=== PATIENT | male | born 1945 | race Caucasian/White ===

== ENCOUNTER 2019-10-13 10:49 | Outpatient (CLI) | payer OTHER, SELFPAY ==
--- NOTE | 2019-10-13 11:13 | XR_ITS ---
WS: [id number] SHOULDER RIGHT TECHNIQUE: 3 views of the right shoulder CLINICAL INFORMATION: RT REVERSE TOTAL SHOULDER ARTHROPLASTY COMPARISON: None. FINDINGS: Normal acromioclavicular joint. Reversed right TSA. No evidence of hardware loosening. XR/XR shoulder RT min 2V* 60280 IMPRESSION: Reversed right TSA in good position
== END 2019-10-13 10:50 | disposition home or self-care (01) ==
LOC: RAD 11:06
PROVIDERS: Visit Provider Orthopaedic Surgery
DX: Z96.611 Presence of right artificial shoulder joint (principal)
CPT/HCPCS: 73030

== ENCOUNTER 2020-05-16 11:43 | Emergency (ER) | payer OTHER, MEDICARE, SELFPAY ==
[2020-05-16 11:53] VITALS: BP 142/89; PULSE 66; RESP 18; TEMP 36.4; O2SAT 97; BMI 30.2
--- NOTE | 2020-05-16 12:18 | CT_ITS ---
WS: [id number] CT HEAD NONCONTRAST HISTORY: Symptoms of Acute Stroke TECHNIQUE: Contiguous axial imaging performed through the brain in 2.5 mm imaging. Bone and soft tiss ue windows. Sagittal and coronal reformats reviewed. All CT scans at [facility] use at ast one of these dose optimization techniques: automated exposure control; mA and/or kV adjustment pe r patient size (includes targeted exams where dose is matched to clinical indication); or iterative r econstruction. DLP: 764.41 mGy.cm COMPARISON: None available. No acute intracranial hemorrhage, midline shift or mass effect. Mild atrophy and mild chronic microvascular ischemic disease. No prior large territory infarct. No duque lcal effacement. Mild cerebellar atrophy. Ventricles: Normal size with no hydrocephalus. Paranasal sinuses: As visualized are clear. Mastoid air cells: Well pneumatized. Calvarium and scalp: Skull is intact with no soft tissue edema or swelling. Mild atherosclerotic plaque in the intracranial carotid arteries. CT/CT head wo con* [id number] IMPRESSION: 1. No evidence for an acute intracranial hemorrhage or edema. 2. Mild atrophy and chronic ischemic disease.
--- NOTE | 2020-05-16 12:18 | ECG_ITS ---
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
[2020-05-16 12:29] LABS: Glucose Point of Care 176 mg/dL (70-110)
--- NOTE | 2020-05-16 12:30 | ED_ITS ---
HPI - Neuro Symptoms/Deficit General: Chief Complaint: Neuro Symptoms/Deficit Stated Complaint: PHY REF/POSS STROKE Time Seen by Provider: 05/16/20 12:06 Source: patient and family () Mode of arrival: ambulatory Limitations: no limitations History of Present Illness: HPI Narrative: Patient is a 74-year-old gentleman with a history of hypertension, diabetes, aortic aneurysm, who presents to the emergency department with left-sided hemiparesis that is intermittent. He has been having the symptoms for about 3 to 4 days with left-sided weakness. He states his only last for a short time and the last time it happened was this morning, lasted about 30 seconds, about 1 hour ago.. No slurred speech, no facial drooping, no headache. He has a longstanding history of dizziness. Location: left arm and left leg History of same: Yes Severity: mild Quality: weak Relieving factors: time Exacerbating factors: none Context: sudden onset On Anticoagulants: No Associated symptoms: Deny chest pain, cough, diaphoresis, fevers/chills, headache(s), anorexia, malaise, nausea, seizures, short of breath, syncope, tingling, vertigo, vomiting or weakness Review of Systems General: Reports: 10 or more systems reviewed and unremarkable except in HPI and below Const: Denies: malaise or diaphoresis Eyes: Denies: change in vision or blurry vision ENMT: Denies: throat pain, enlarged tonsils, odynophagia, hoarseness, mouth pain or swelling of lips/tongue Card: Denies: chest pain or syncope Resp: Denies: dyspnea, productive cough or non-productive cough GI: Denies: nausea or vomiting : Denies: flank pain, dysuria, urinary frequency, urinary urgency or urinary hesitancy Musc: Denies: neck pain, back pain or extremity swelling Skin/Breast: Denies: rash, pruritus or erythema Neuro: Denies: headache(s) or vertigo Endo: Denies: polyuria, polydipsia or tired all the time NIH stroke score NIHSS: Level Of Consciousness - 1a: 0 Level Of Consciousness Questions - 1b: Both Correct Level Of Consciousness Commands - 1c: Both Correct Best G aze - 2: Normal Visual Lopes - 3: No Visual Loss Facial Palsy - 4: Normal Motor Arm Right - 5: No Drift Motor Arm Left - 5: No Drift Motor Leg Right - 6: No Drift Motor Leg Left - 6: No Drift Limb Ataxia - 7: Absent Sensory - 8: Normal Best Language - 9: No Aphasia Dysarthia - 10: Normal Extinction And Inattention - 11: 0 Score: Total Score: 0 Physical Exam Const: COMMON NORMALS: no acute distress, average body habitus, patient oriented x3, no limitations, healthy appearing, alert and well nourished HENMT: COMMON NORMALS: normocephalic, atraumatic and moist oral mucous membranes HEAD & SCALP: normocephalic and atraumatic Eye: COMMON NORMALS: Equal, round and reactive pupils present, EOMs intact bilaterally, conjunctivae normal and no scleral icterus CONJUNCTIVA: Yes conjunctivae normal PUPIL: Yes Equal, round and reactive pupils present Neck/C-Spine: COMMON NORMALS: full ROM, supple, no meningeal signs, no JVD and No carotid bruits Chest: COMMONS NORMALS: normal inspection of the chest and normal palpation of entire chest wall Resp: COMMON NORMALS: normal respiratory effort, No retractions, No use of accessory muscles, clear to auscultation bilaterally and percussion normal AUSCULTATION: clear to auscultation bilaterally PERCUSSION: percussion normal Cardio: COMMON NORMALS: no JVD, regular rate, regular rhythm, S1 normal heart sound present, S2 normal heart sound present, No gallops present (Cardio), No clicks present (Cardio), No murmurs present (Cardio), No rub (Cardio) and Peripheral pulses 2+ throughout RATE: regular rate RHYTHM: regular rhythm HEART SOUNDS: S1 normal heart sound present and S2 normal heart sound present PERIPHERAL PULSES: Peripheral pulses 2+ throughout GI: COMMON NORMALS: Normal to inspection, nondistended, normoactive bowel sounds present, Soft to palpation, non-tender, No hepatosplenomegaly present, no masses and no bruits PALPATION: Yes Soft to palpation and Yes No hepatosplenomegaly present Extremity: COMMON NORMALS: normal to inspection, full ROM, capillary refill normal, no calf tenderness and no pedal edema Neuro: COMMON NORMALS: patient oriented x3 SENSORIUM/ORIENTATION: Yes alert MENINGEAL SIGNS: Yes no meningeal signs Skin: COMMON NORMALS: no rashes or lesions noted, no wounds, turgor normal, no jaundice, no petechiae and no mottling GENERAL SKIN EXAM: no rashes or lesions noted and turgor normal Course Reevaluation(s): Reevaluation #1: Discussed his lab and imaging findings with him, also discussed my conversation with the neurologist. Explained that would love for him to get carotid Dopplers and echo either here or outpatient. Also would like to order an outpatient MRI. The patient states he cannot wait any longer in the emergency department and wants to leave. He refused a Doppler to be done here, says he would like it done outpatient. He said his primary care provider sent him here for a CT scan only and that all he wants done. He therefore said he is not going to agree to any more tests to be done in the emergency room. He agreed to starting Plavix and to change his statin from pravastatin to atorvastatin. Time: 14:39 Consultations: Consultation #1: Discussed this patient with Dr. Arana, neurologist. She agrees that this patient is likely having TIAs. She agrees with changing pravastatin to atorvastatin. She would like the patient to get a CTA of his head and neck, however I explained to her that the patient is quite resistant to getting intravenous contrast because of declining renal function and has stopped getting CTAs looking at his aortic aneurysm repair because of this. She then said we can get a carotid Doppler in the emergency department and if possible on echocardiogram. The other medication that he probably should start his Plavix. The patient should get an MRI plus intracranial MRA which is without contrast. And she would like to see me in the clinic and he should be put on the TIA schedule. Time: 14:24 Vital Signs: Vital signs: Vital Signs Temperature 97.9 F 05/16/20 14:59 Pulse Rate 65 05/16/20 14:59 Respiratory Rate 18 05/16/20 14:59 Blood Pressure 149/89 05/16/20 14:59 Pulse Oximetry 99 05/16/20 14:59 MDM - Neuro Symptoms/Deficit MDM Narrative: Medical decision making narrative: 74-year-old gentleman who was sent to the emergency department by his primary care provider with concerns for TIAs. History and examination and evaluation in the emergency department is suggestive of TIA. The patient however was unwilling to wait for all his tests, the only thing he wanted done was a CT of his head. He declined a carotid Doppler and echocardiogram in the emergency department. He however wants them to be done outpatient. He agreed to medication changes and he will stop pravastatin and start atorvastatin. He will also start Plavix. He was therefore discharged home with this medication and he will follow-up with his primary care provider and neurology. Medical Records: Attestation: I reviewed the patient's medical records. Lab Data: Attestation: I reviewed the patient's lab results. Labs: Lab Results 05/16/20 05/16/20 05/16/20 Range/Units 12:26 12:27 12:27 WBC 7.7 (4.0-10.0) 10^3/ uL RBC 4.65 (4.1-5.3) 10^6/u L Hgb 13.6 (11.7-16.6) g/dL Hct 41.5 L (42.0-52.0) % MCV 89.2 (80-94) fL MCH 29.2 (28.0-34.0) pg MCHC 32.8 (30.0-36.0) g/dL RDW 13.0 (12.1-15.1) % Plt Count 232 (130-400) 10^3/c mm MPV 11.9 H (7.4-10.4) fL Neut % (Auto) 50.0 % Lymph % (Auto) 32.2 % Mcpherson % (Auto) 9.1 % Eos % (Auto) 5.8 % Baso % (Auto) 2.1 % Neut # (Auto) 3.85 (1.8-7.7) 10^3/u L Lymph # (Auto) 2.5 (0.8-4.8) 10^3/u L Mcpherson # (Auto) 0.7 (0.2-0.9) 10^3/u L Eos # (Auto) 0.5 (0.0-0.8) 10^3/u L Baso # (Auto) 0.2 H (0.0-0.1) 10^3/u L Nucleated RBC % (a uto) 0 % Nucleated RBCs # 0.0 /100WBC PT 12.70 (12.1-14.9) SECO NDS INR 0.93 (0.8-1.2) APTT 26.8 (23.9-36.7) SECO NDS Sodium (136-145) mmol/L Potassium (3.5-5.1) mmol/L Chloride (98-107) mmol/L Carbon Dioxide (22-29) mmol/L Anion Gap (5-19) BUN (8-23) mg/dL Creatinine (0.7-1.2) mg/dL GFR Calculation Glucose (65-115) mg/dL POC Glucose 176 (70-110) mg/dL Calculated Osmolal ity (285-295) mOsm/k g Calcium (8.5-10.5) mg/dL Total Bilirubin (0.15-1.2) mg/dL AST (0-40) U/L ALT (0-41) U/L Alkaline Phosphata se (40-130) IU/L Troponin T Gen 5 n g/L (0-15) ng/L Total Protein (6.6-8.7) g/dL Albumin (3.5-5.2) g/dL Globulin (1.3-4.6) g/dL Urine Color (Yellow) Urine Appearance (CLEAR) Urine pH (5-7) Ur Specific Gravit y (1.005-1.030) Urine Protein (Negative) Urine Glucose (UA) (Normal) Urine Ketones (Negative) Urine Blood (Negative) Urine Nitrate (Negative) Urine Bilirubin (Negative) Urine Urobilinogen (Negative) mg/dL Ur Leukocyte Kaylan ase (Negative) Urine Opiates Scre en (Negative) ng/mL Ur Barbiturates Sc reen (Negative) ng/mL Ur Phencyclidine S crn (Negative) ng/mL Ur Amphetamines Sc reen (Negative) ng/mL U Benzodiazepines Scrn (Negative) ng/mL Urine Cocaine Scre en (Negative) ng/mL U Marijuana (THC) Screen (Negative) ng/mL 05/16/20 05/16/20 05/16/20 Range/Units 12:27 12:27 13:10 WBC (4.0-10.0) 10^3/ uL RBC (4.1-5.3) 10^6/u L Hgb (11.7-16.6) g/dL Hct (42.0-52.0) % MCV (80-94) fL MCH (28.0-34.0) pg MCHC (30.0-36.0) g/dL RDW (12.1-15.1) % Plt Count (130-400) 10^3/c mm MPV (7.4-10.4) fL Neut % (Auto) % Lymph % (Auto) % Mcpherson % (Auto) % Eos % (Auto) % Baso % (Auto) % Neut # (Auto) (1.8-7.7) 10^3/u L Lymph # (Auto) (0.8-4.8) 10^3/u L Mcpherson # (Auto) (0.2-0.9) 10^3/u L Eos # (Auto) (0.0-0.8) 10^3/u L Baso # (Auto) (0.0-0.1) 10^3/u L Nucleated RBC % (a uto) % Nucleated RBCs # /100WBC PT (12.1-14.9) SECO NDS INR (0.8-1.2) APTT (23.9-36.7) SECO NDS Sodium 135 L (136-145) mmol/L Potassium 4.9 (3.5-5.1) mmol/L Chloride 101 (98-107) mmol/L Carbon Dioxide 24 (22-29) mmol/L Anion Gap 14.9 (5-19) BUN 18 (8-23) mg/dL Creatinine 1.6 H (0.7-1.2) mg/dL GFR Calculation Not Reportable Glucose 195 H (65-115) mg/dL POC Glucose (70-110) mg/dL Calculated Osmolal ity 287 (285-295) mOsm/k g Calcium 9.5 (8.5-10.5) mg/dL Total Bilirubin 0.3 (0.15-1.2) mg/dL AST 19 (0-40) U/L ALT 23 (0-41) U/L Alkaline Phosphata se 79 (40-130) IU/L Troponin T Gen 5 n g/L 10 (0-15) ng/L Total Protein 6.8 (6.6-8.7) g/dL Albumin 4.3 (3.5-5.2) g/dL Globulin 2.5 (1.3-4.6) g/dL Urine Color Yellow (Yellow) Urine Appearance Clear (CLEAR) Urine pH 6 (5-7) Ur Specific Gravit y 1.015 (1.005-1.030) Urine Protein Neg (Negative) Urine Glucose (UA) 1+ (Normal) Urine Ketones Negative (Negative) Urine Blood Neg (Negative) Urine Nitrate Negative (Negative) Urine Bilirubin Neg (Negative) Urine Urobilinogen Norm (Negative) mg/dL Ur Leukocyte Kaylan ase Negative (Negative) Urine Opiates Scre en (Negative) ng/mL Ur Barbiturates Sc reen (Negative) ng/mL Ur Phencyclidine S crn (Negative) ng/mL Ur Amphetamines Sc reen (Negative) ng/mL U Benzodiazepines Scrn (Negative) ng/mL Urine Cocaine Scre en (Negative) ng/mL U Marijuana (THC) Screen (Negative) ng/mL 05/16/20 05/16/20 Range/Units 13:10 13:49 WBC (4.0-10.0) 10^3/ uL RBC (4.1-5.3) 10^6/u L Hgb (11.7-16.6) g/dL Hct (42.0-52.0) % MCV (80-94) fL MCH (28.0-34.0) pg MCHC (30.0-36.0) g/dL RDW (12.1-15.1) % Plt Count (130-400) 10^3/c mm MPV (7.4-10.4) fL Neut % (Auto) % Lymph % (Auto) % Mcpherson % (Auto) % Eos % (Auto) % Baso % (Auto) % Neut # (Auto) (1.8-7.7) 10^3/u L Lymph # (Auto) (0.8-4.8) 10^3/u L Mcpherson # (Auto) (0.2-0.9) 10^3/u L Eos # (Auto) (0.0-0.8) 10^3/u L Baso # (Auto) (0.0-0.1) 10^3/u L Nucleated RBC % (a uto) % Nucleated RBCs # /100WBC PT (12.1-14.9) SECO NDS INR (0.8-1.2) APTT (23.9-36.7) SECO NDS Sodium (136-145) mmol/L Potassium (3.5-5.1) mmol/L Chloride (98-107) mmol/L Carbon Dioxide (22-29) mmol/L Anion Gap (5-19) BUN (8-23) mg/dL Creatinine (0.7-1.2) mg/dL GFR Calculation Glucose (65-115) mg/dL POC Glucose 154 (70-110) mg/dL Calculated Osmolal ity (285-295) mOsm/k g Calcium (8.5-10.5) mg/dL Total Bilirubin (0.15-1.2) mg/dL AST (0-40) U/L ALT (0-41) U/L Alkaline Phosphata se (40-130) IU/L Troponin T Gen 5 n g/L (0-15) ng/L Total Protein (6.6-8.7) g/dL Albumin (3.5-5.2) g/dL Globulin (1.3-4.6) g/dL Urine Color (Yellow) Urine Appearance (CLEAR) Urine pH (5-7) Ur Specific Gravit y (1.005-1.030) Urine Protein (Negative) Urine Glucose (UA) (Normal) Urine Ketones (Negative) Urine Blood (Negative) Urine Nitrate (Negative) Urine Bilirubin (Negative) Urine Urobilinogen (Negative) mg/dL Ur Leukocyte Kaylan ase (Negative) Urine Opiates Scre en Negative (Negative) ng/mL Ur Barbiturates Sc reen Negative (Negative) ng/mL Ur Phencyclidine S crn Negative (Negative) ng/mL Ur Amphetamines Sc reen Negative (Negative) ng/mL U Benzodiazepines Scrn Negative (Negative) ng/mL Urine Cocaine Scre en Negative (Negative) ng/mL U Marijuana (THC) Screen Negative (Negative) ng/mL Imaging Data^: CT Head: Attestation: I personally reviewed and interpreted this imaging study as follows: Radiologist's impression: [address] [place] [address] CT Scan Report Signed Patient: Howard Williamson #: [id number] : 7Acct#:[id number] Age/Sex: 74 / MADM Date: 05/16/20 Loc: ERRoom/Bed: Attending Dr: Ordering Provider/Ordering MD: Zaheer Grove [place], [facility] [place] of Service: 05/16/20 Procedure(s): CT head wo con* [id number] Accession Number(s): [id number] Report Number: [id number] WS: [id number] CT HEAD NONCONTRAST HISTORY: Symptoms of Acute Stroke TECHNIQUE: Contiguous axial imaging performed through the brain in 2.5 mm imaging. Bone and soft tissue windows. Sagittal and coronal reformats reviewed. All CT scans at [facility] use at least one of these dose optimization techniques: automated exposure control; mA and/or kV adjustment per patient size (includes targeted exams where dose is matched to clinical indication); or iterative reconstruction. DLP: 764.41 mGy.cm COMPARISON: None available. No acute intracranial hemorrhage, midline shift or mass effect. Mild atrophy and mild chronic microvascular ischemic disease. No prior large territory infarct. No sulcal effacement. Mild cerebellar atrophy. Ventricles: Normal size with no hydrocephalus. Paranasal sinuses: As visualized are clear. Mastoid air cells: Well pneumatized. Calvarium and scalp: Skull is intact with no soft tissue edema or swelling. Mild atherosclerotic plaque in the intracranial carotid arteries. CT/CT head wo con* [id number] IMPRESSION: 1. No evidence for an acute intracranial hemorrhage or edema. 2. Mild atrophy and chronic ischemic disease. Dictated By:Amy Brewster DO Signed By:Amy Brewster DOSigned Date/Time:05/16/20 1235 DD/ 1233 EKG Data^: EKG 1: Attestation: I personally reviewed and interpreted this EKG as follows: EKG interpretation date: 05/16/20 EKG interpretation time: 12:40 Prior EKG tracings: not available for review Interpretation: Sinus bradycardia with first-degree AV block. Heart rate [address] changes. Normal axis. Discharge Plan Discharge Patient Disposition: Home Clinical Impression: TIA (transient ischemic attack) Condition: Stable Prescriptions: New Plavix 75 mg tablet 75 mg PO DAILY Qty: 30 RF: 0 atorvastatin 40 mg tablet 40 mg PO DAILY Qty: 30 RF: 0 Continued aspirin 325 mg Tablet 325 mg PO DAILY RF: 0 metoprolol tartrate 100 mg Tablet 100 mg PO BID RF: 0 allopurinol 100 mg Tablet 100 mg PO DAILY RF: 0 levothyroxine 88 mcg Tablet 88 mcg PO DAILY RF: 0 tamsulosin 0.4 mg Capsule 0.4 mg PO QPM RF: 0 metformin 1,000 mg Tablet 1,000 mg PO BID RF: 0 lisinopril 10 mg Tablet 10 mg PO BID RF: 0 omeprazole 20 mg Capsule,Delayed Release(Dr/Ec) 20 mg PO DAILY RF: 0 hydrochlorothiazide 25 mg Tablet 25 mg PO DAILY RF: 0 Vitamin D3 25 mcg (1,000 unit) Capsule 1,000 unit PO BID RF: 0 Vitamin B-12 1 tab PO BID RF: 0 Discontinued pravastatin 80 mg Tablet 80 mg PO QPM RF: 0 Discharge Orders: Discharge Order (Routine); Ordered 05/16/20 Ordered By: Zaheer Grove Referrals: Mini Vasquez FNP [Primary Care Provider] - 1-3 days Discharge Diet: Usual diet Discharge Activity: Increase activity as tolerated Patient Instructions: Transient Ischemic Attack (ED) Activity Restrictions/Additional Instructions: Return for any new or worsening symptoms. Follow-up with your primary care provider within 3 days. You require a few more test for full evaluation of your TIA. You need the following tests-carotid Doppler, echocardiogram, brain MRI with intracranial MRA. I have put in the referral and our binder caser will discuss with the [facility] binder [facility] so that you can have these tests done. Stop pravastatin and start atorvastatin as prescribed, also start the Plavix that I have prescribed. Coding Level of Care Code ED Campaign Worker for Devante Mcclelland Exam Comprehensive
[2020-05-16 12:40] VITALS: BP 140/82; PULSE 61; RESP 18; O2SAT 98
[2020-05-16 12:40] LABS: Basophils # 0.2 10^3/uL (0.0-0.1); Basophils % 2.1 %; Eosinophils # 0.5 10^3/uL (0.0-0.8); Eosinophils % 5.8 %; Hematocrit 41.5 % (42.0-52.0); Hemoglobin 13.6 g/dL (11.7-16.6); Lymphocytes # 2.5 10^3/uL (0.8-4.8); Lymphocytes % 32.2 %; Mean Corpuscular HGB Conc 32.8 g/dL (30.0-36.0); Mean Corpuscular Hemoglobin 29.2 pg (28.0-34.0); Mean Corpuscular Volume 89.2 fL (80-94); Mean Platelet Volume 11.9 fL (7.4-10.4); Monocytes # 0.7 10^3/uL (0.2-0.9); Monocytes % 9.1 %; Neutrophils # 3.85 10^3/uL (1.8-7.7); Nucleated Red Blood Cells % 0 %; Platelet Count 232 10^3/cmm (130-400); Red Blood Count 4.65 10^6/uL (4.1-5.3); White Blood Count 7.7 10^3/uL (4.0-10.0)
[2020-05-16 12:49] LABS: INR 0.93 (0.8-1.2)
[2020-05-16 12:50] LABS: Partial Thromboplastin Time 26.8 SECONDS (23.9-36.7)
[2020-05-16 12:56] LABS: Alanine Aminotransferase 23 U/L (0-41); Albumin Level 4.3 g/dL (3.5-5.2); Alkaline Phosphatase 79 IU/L (40-130); Anion Gap 14.9 (5-19); Aspartate Amino Transferase 19 U/L (0-40); Blood Urea Nitrogen 18 mg/dL (8-23); Calcium 9.5 mg/dL (8.5-10.5); Carbon Dioxide 24 mmol/L (22-29); Chloride 101 mmol/L (98-107); Globulin 2.5 g/dL (1.3-4.6); Glucose 195 mg/dL (65-115); Osmolality Calculated 287 mOsm/kg (285-295); Potassium 4.9 mmol/L (3.5-5.1); Sodium 135 mmol/L (136-145); Total Bilirubin 0.3 mg/dL (0.15-1.2); Total Protein 6.8 g/dL (6.6-8.7)
[2020-05-16 12:58] LABS: Troponin T (5th) Once 10 ng/L (0-15)
[2020-05-16 13:09] VITALS: BP 151/88; PULSE 65; RESP 18; O2SAT 95
[2020-05-16 13:20] LABS: Add Urine Microscopic? NO
[2020-05-16 13:32] LABS: Amphetamines Screen Urine Negative (Negative); Barbiturates Screen Urine Negative (Negative); Benzodiazepines Screen Urine Negative (Negative); Cocaine Screen Urine Negative (Negative); Opiate Screen Urine Negative (Negative); PCP Screen Urine Negative (Negative); THC Screen Urine Negative (Negative)
[2020-05-16 13:52] LABS: Bilirubin Urine Neg (Negative); Blood Urine Neg (Negative); Glucose Urine UA 1+ (Normal); Ketones Urine Negative (Negative); Leukocyte Esterase Urine Negative (Negative); Nitrate Urine Negative (Negative); Protein Urine Neg (Negative); Specific Gravity, Urine 1.015 (1.005-1.030); Urine Appearance Clear (CLEAR); Urine Color Yellow (Yellow); Urobilinogen Urine Norm (Negative); pH Urine 6 (5-7)
[2020-05-16 13:53] LABS: Glucose Point of Care 154 mg/dL (70-110)
[2020-05-16 14:48] VITALS: BP 149/89; PULSE 69; RESP 18; O2SAT 98
[2020-05-16 14:59] VITALS: BP 149/89; PULSE 65; RESP 18; TEMP 36.6; O2SAT 99
--- NOTE | 2020-05-30 11:21 | DCPLANNER ---
client business manager had message to schedule an MRI head, carotid, echo cardiogram, carotid doppler, and an intracranial MRA. client business manager can not order any these from the ER due to patient having [facility] insurance. client business manager did make a referral to Dr. Arana, spoke with Zoya, magnetic resonance imaging coordinator, and let her know that the ER physician wanted these ordered but that they could not be ordered from the ER, due to patient having [facility] insurance.
== END 2020-05-16 15:06 | disposition home or self-care (01) ==
PROVIDERS: Emergency Provider Family Medicine; PCP Nurse Practitioner
DX: G45.9 Transient cerebral ischemic attack, unspecified (principal); Z79.82 Long term (current) use of aspirin; Z79.899 Other long term (current) drug therapy
CPT/HCPCS: 12345; 36416; 70450; 80053; 80306; 81003; 82962; 84484; 85025; 85610; 85730; 93005; 99283

== ENCOUNTER 2020-05-18 10:50 | Emergency (ER) | payer OTHER, MEDICARE, SELFPAY ==
[2020-05-18 11:06] VITALS: BP 155/90; PULSE 60; RESP 18; TEMP 36.3; O2SAT 98; BMI 30.4
--- NOTE | 2020-05-18 11:21 | CT_ITS ---
WS: [id number] CT HEAD NONCONTRAST HISTORY: Symptoms of Acute Stroke TECHNIQUE: Contiguous axial imaging performed through the brain in 2.5 mm imaging. Bone and soft tiss ue windows. Sagittal and coronal reformats reviewed. All CT scans at [facility] use at ast one of these dose optimization techniques: automated exposure control; mA and/or kV adjustment pe r patient size (includes targeted exams where dose is matched to clinical indication); or iterative r econstruction. DLP: 776.34 mGy.cm COMPARISON: 05/16/2020 No acute intracranial hemorrhage, midline shift or mass effect. Mild atrophy and chronic ischemic disease. There is also mild cerebellar atrophy. No interval develop ment of sulcal effacement or subacute infarct. Ventricles: Normal size with no hydrocephalus. Paranasal sinuses: As visualized are clear. Mastoid air cells: Well pneumatized. Calvarium and scalp: Skull is intact with no soft tissue edema or swelling. CT/CT head wo con* [id number] IMPRESSION: 1. No acute intracranial hemorrhage. No interval development of a subacute inf arct since 05/16/2020. 2. Stable cerebral atrophy and chronic microvascular ischemic changes.
--- NOTE | 2020-05-18 11:21 | ECG_ITS ---
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
--- NOTE | 2020-05-18 11:48 | W.ED.NEUROSD ---
HPI - Neuro Symptoms/Deficit General: Chief Complaint: Neuro Symptoms/Deficit Stated Complaint: [facility]IA s[facility] Time Seen by Provider: 05/18/20 11:20 History of Present Illness: HPI Narrative: 74-year-old male presents emergency room complaining of TIA-like symptoms. He was seen on 1124 for evaluation of TIA and left AMA. He states he still intermittently getting episodes of numbness and tingling in his left arm and leg had one while he was walking back to the ground the last for few seconds and then resolve. When he was here last time he was given a prescription for Plavix but never got it filled yet. [facility] and [facility] will [facility] next [facility]. He denies any chest pain denies any difficulty vision or speech. He presents today mainly to have the remainder work-up that was recommended to him last week done he cites specifically an MRI of the head and an echocardiogram and carotid. Onset (ago): day(s) Location: left arm and left leg History of same: Yes Severity: mild Quality: numb and tingling Relieving factors: none Exacerbating factors: none Context: sudden onset On Anticoagulants: No Associated symptoms: Reports tingling and weakness; Deny chest pain, cough, diaphoresis, fevers/chills, headache(s), anorexia, malaise, nausea, seizures, short of breath, syncope, vertigo or vomiting Treatments Prior to Arrival: none Review of Systems Const: Denies: malaise or diaphoresis ENMT: Denies: throat pain, ear or mastoid pain, nasal discharge or nasal congestion Card: Denies: chest pain or syncope Resp: Denies: dyspnea, productive cough or non-productive cough GI: Denies: nausea or vomiting : Denies: flank pain, dysuria, urinary frequency or urinary urgency Skin/Breast: Denies: rash or pruritus Neuro: Denies: headache(s) or vertigo NIH stroke score NIHSS: Level Of Consciousness - 1a: 0 Level Of Consciousness Questions - 1b: Both Correct Level Of Consciousness Commands - 1c: Both Correct Best Gaze - 2: Normal Visual Lopes - 3: No Visual Loss Facial Palsy - 4: Normal Motor Arm Right - 5: No Drift Motor Arm Left - 5: No Drift Motor Leg Right - 6: No Drift Motor Leg Left - 6: No Drift Limb Ataxia - 7: Absent Sensory - 8: Normal Best Language - 9: No Aphasia Dysarthia - 10: Normal Extinction And Inattention - 11: 0 Score: Total Score: 0 Physical Exam Const: COMMON NORMALS: no acute distress GENERAL APPEARANCE: cooperative and comfortable ORIENTATION/CONSCIOUSNESS: Yes awake, Yes oriented to person, Yes oriented to place and Yes oriented to time HENMT: COMMON NORMALS: normocephalic, atraumatic and hearing grossly normal bilaterally HEAD & SCALP: normocephalic and atraumatic Eye: COMMON NORMALS: Equal, round and reactive pupils present, EOMs intact bilaterally, conjunctivae normal and no scleral icterus CONJUNCTIVA: Yes conjunctivae normal PUPIL: Yes Equal, round and reactive pupils present Neck/C-Spine: COMMON NORMALS: full ROM, no lymphadenopathy, supple and no JVD Resp: COMMON NORMALS: normal respiratory effort, No retractions, No use of accessory muscles and clear to auscultation bilaterally AUSCULTATION: clear to auscultation bilaterally Cardio: COMMON NORMALS: no JVD, regular rate, regular rhythm and No murmurs present (Cardio) RATE: regular rate RHYTHM: regular rhythm GI: COMMON NORMALS: Soft to palpation and No hepatosplenomegaly present AUSCULTATION: Yes normoactive bowel sounds PALPATION: Yes Soft to palpation, No Tenderness to palpation present (GI), No Guarding due to palpation present (GI) and Yes No hepatosplenomegaly present Extremity: COMMON NORMALS: normal to inspection, capillary refill normal, no clubbing, cyanosis or edema, no calf tenderness and no pedal edema Neuro: SENSORIUM/ORIENTATION: Yes oriented to person, Yes oriented to place and Yes oriented to time Skin: COMMON NORMALS: no rashes or lesions noted GENERAL SKIN EXAM: no rashes or lesions noted Course Vital Signs: Vital signs: Vital Signs Temperature 97.3 F L 05/18/20 11:06 Pulse Rate 66 05/18/20 13:57 Respiratory Rate 18 05/18/20 13:57 Blood Pressure 136/99 05/18/20 13:57 Pulse Oximetry 98 05/18/20 13:57 MDM - Neuro Symptoms/Deficit MDM Narrative: Medical decision making narrative: No focal neurologic deficits NIH score is 0. CT of the head was negative. We will go ahead and discharge him home encourage him to get the Plavix and his he is able set up outpatient MRI echo and carotids return if has further problems. Lab Data: Labs: Lab Results 05/18/20 05/18/20 05/18/20 Range/Units 12:16 12:16 12:16 WBC 7.4 (4.0-10.0) 10^3/ uL RBC 4.60 (4.1-5.3) 10^6/u L Hgb 13.5 (11.7-16.6) g/dL Hct 41.2 L (42.0-52.0) % MCV 89.6 (80-94) fL MCH 29.3 (28.0-34.0) pg MCHC 32.8 (30.0-36.0) g/dL RDW 12.9 (12.1-15.1) % Plt Count 224 (130-400) 10^3/c mm MPV 12.1 H (7.4-10.4) fL Neut % (Auto) 49.1 % Lymph % (Auto) 33.1 % [place] % (Auto) 9.3 % Eos % (Auto) 6.0 % Baso % (Auto) 2.0 % Neut # (Auto) 3.62 (1.8-7.7) 10^3/u L Lymph # (Auto) 2.4 (0.8-4.8) 10^3/u L [place] # (Auto) 0.7 (0.2-0.9) 10^3/u L Eos # (Auto) 0.4 (0.0-0.8) 10^3/u L Baso # (Auto) 0.2 H (0.0-0.1) 10^3/u L Nucleated RBC % (a uto) 0 % Nucleated RBCs # 0.0 /100WBC PT 12.60 (12.1-14.9) SECO NDS INR 0.92 (0.8-1.2) APTT 25.4 (23.9-36.7) SECO NDS Sodium 136 (136-145) mmol/L Potassium 5.3 H (3.5-5.1) mmol/L Chloride 101 (98-107) mmol/L Carbon Dioxide 26 (22-29) mmol/L Anion Gap 14.3 (5-19) BUN 17 (8-23) mg/dL Creatinine 1.5 H (0.7-1.2) mg/dL GFR Calculation Not Reportable Glucose 223 H (65-115) mg/dL POC Glucose (70-110) mg/dL Calculated Osmolal ity 290 (285-295) mOsm/k g Calcium 9.4 (8.5-10.5) mg/dL Total Bilirubin 0.4 (0.15-1.2) mg/dL AST 17 (0-40) U/L ALT 20 (0-41) U/L Alkaline Phosphata se 74 (40-130) IU/L Total Protein 6.8 (6.6-8.7) g/dL Albumin 4.4 (3.5-5.2) g/dL Globulin 2.4 (1.3-4.6) g/dL Urine Color (Yellow) Urine Appearance (CLEAR) Urine pH (5-7) Ur Specific Gravit y (1.005-1.030) Urine Protein (Negative) Urine Glucose (UA) (Normal) Urine Ketones (Negative) Urine Blood (Negative) Urine Nitrate (Negative) Urine Bilirubin (Negative) Urine Urobilinogen (Negative) mg/dL Ur Leukocyte Kaylan ase (Negative) Urine Opiates Scre en (Negative) ng/mL Ur Barbiturates Sc reen (Negative) ng/mL Ur Phencyclidine S crn (Negative) ng/mL Ur Amphetamines Sc reen (Negative) ng/mL U Benzodiazepines Scrn (Negative) ng/mL Urine Cocaine Scre en (Negative) ng/mL U Marijuana (THC) Screen (Negative) ng/mL 05/18/20 05/18/20 05/18/20 Range/Units 12:19 12:59 12:59 WBC (4.0-10.0) 10^3/ uL RBC (4.1-5.3) 10^6/u L Hgb (11.7-16.6) g/dL Hct (42.0-52.0) % MCV (80-94) fL MCH (28.0-34.0) pg MCHC (30.0-36.0) g/dL RDW (12.1-15.1) % Plt Count (130-400) 10^3/c mm MPV (7.4-10.4) fL Neut % (Auto) % Lymph % (Auto) % [place] % (Auto) % Eos % (Auto) % Baso % (Auto) % Neut # (Auto) (1.8-7.7) 10^3/u L Lymph # (Auto) (0.8-4.8) 10^3/u L [place] # (Auto) (0.2-0.9) 10^3/u L Eos # (Auto) (0.0-0.8) 10^3/u L Baso # (Auto) (0.0-0.1) 10^3/u L Nucleated RBC % (a uto) % Nucleated RBCs # /100WBC PT (12.1-14.9) SECO NDS INR (0.8-1.2) APTT (23.9-36.7) SECO NDS Sodium (136-145) mmol/L Potassium (3.5-5.1) mmol/L Chloride (98-107) mmol/L Carbon Dioxide (22-29) mmol/L Anion Gap (5-19) BUN (8-23) mg/dL Creatinine (0.7-1.2) mg/dL GFR Calculation Glucose (65-115) mg/dL POC Glucose 212 (70-110) mg/dL Calculated Osmolal ity (285-295) mOsm/k g Calcium (8.5-10.5) mg/dL Total Bilirubin (0.15-1.2) mg/dL AST (0-40) U/L ALT (0-41) U/L Alkaline Phosphata se (40-130) IU/L Total Protein (6.6-8.7) g/dL Albumin (3.5-5.2) g/dL Globulin (1.3-4.6) g/dL Urine Color Yellow (Yellow) Urine Appearance Clear (CLEAR) Urine pH 6 (5-7) Ur Specific Gravit y 1.010 (1.005-1.030) Urine Protein Neg (Negative) Urine Glucose (UA) 1+ (Normal) Urine Ketones Negative (Negative) Urine Blood Neg (Negative) Urine Nitrate Negative (Negative) Urine Bilirubin 1+ H (Negative) Urine Urobilinogen Norm (Negative) mg/dL Ur Leukocyte Kaylan ase Negative (Negative) Urine Opiates Scre en Negative (Negative) ng/mL Ur Barbiturates Sc reen Negative (Negative) ng/mL Ur Phencyclidine S crn Negative (Negative) ng/mL Ur Amphetamines Sc reen Negative (Negative) ng/mL U Benzodiazepines Scrn Negative (Negative) ng/mL Urine Cocaine Scre en Negative (Negative) ng/mL U Marijuana (THC) Screen Negative (Negative) ng/mL Discharge Plan Discharge Patient Disposition: Home Clinical Impression: TIA (transient ischemic attack), Hyperkalemia Condition: Stable Prescriptions: No Action aspirin 325 mg Tablet 325 mg PO DAILY RF: 0 metoprolol tartrate 100 mg Tablet 100 mg PO BID RF: 0 allopurinol 100 mg Tablet 100 mg PO DAILY RF: 0 levothyroxine 88 mcg Tablet 88 mcg PO DAILY RF: 0 tamsulosin 0.4 mg Capsule 0.4 mg PO QPM RF: 0 metformin 1,000 mg Tablet 1,000 mg PO BID RF: 0 lisinopril 10 mg Tablet 10 mg PO BID RF: 0 omeprazole 20 mg Capsule,Delayed Release(Dr/Ec) 20 mg PO DAILY RF: 0 hydrochlorothiazide 25 mg Tablet 25 mg PO DAILY RF: 0 cholecalciferol (vitamin D3) [Vitamin D3] 25 mcg (1,000 unit) Capsule 1,000 unit PO BID RF: 0 Vitamin B-12 1 tab PO BID RF: 0 clopidogrel [Plavix] 75 mg tablet 75 mg PO DAILY Qty: 30 RF: 0 atorvastatin 40 mg tablet 40 mg PO DAILY Qty: 30 RF: 0 Discharge Orders: Discharge Order (Routine); Ordered 05/18/20 Ordered By: Tony Kitchen Referrals: Mini Vasquez FNP [Primary Care Provider] - Coding Level of Care Code ED Phosph[employer] Processing Supervisor for Chg Fwd Exam Comprehensive
[2020-05-18 11:50] VITALS: BP 112/81; PULSE 58; RESP 18; O2SAT 96
[2020-05-18 12:22] LABS: Glucose Point of Care 212 mg/dL (70-110)
[2020-05-18 12:39] LABS: Basophils # 0.2 10^3/uL (0.0-0.1); Eosinophils # 0.4 10^3/uL (0.0-0.8); Hematocrit 41.2 % (42.0-52.0); Hemoglobin 13.5 g/dL (11.7-16.6); Lymphocytes # 2.4 10^3/uL (0.8-4.8); Lymphocytes % 33.1 %; Mean Corpuscular HGB Conc 32.8 g/dL (30.0-36.0); Mean Corpuscular Hemoglobin 29.3 pg (28.0-34.0); Mean Corpuscular Volume 89.6 fL (80-94); Mean Platelet Volume 12.1 fL (7.4-10.4); Monocytes # 0.7 10^3/uL (0.2-0.9); Monocytes % 9.3 %; Neutrophils # 3.62 10^3/uL (1.8-7.7); Neutrophils % 49.1 %; Nucleated Red Blood Cells % 0 %; Platelet Count 224 10^3/cmm (130-400); Red Cell Distribution Width 12.9 % (12.1-15.1); White Blood Count 7.4 10^3/uL (4.0-10.0)
[2020-05-18 12:44] LABS: INR 0.92 (0.8-1.2)
[2020-05-18 12:45] LABS: Partial Thromboplastin Time 25.4 SECONDS (23.9-36.7)
[2020-05-18 12:49] LABS: Alanine Aminotransferase 20 U/L (0-41); Albumin Level 4.4 g/dL (3.5-5.2); Alkaline Phosphatase 74 IU/L (40-130); Anion Gap 14.3 (5-19); Aspartate Amino Transferase 17 U/L (0-40); Blood Urea Nitrogen 17 mg/dL (8-23); Calcium 9.4 mg/dL (8.5-10.5); Carbon Dioxide 26 mmol/L (22-29); Chloride 101 mmol/L (98-107); Globulin 2.4 g/dL (1.3-4.6); Glucose 223 mg/dL (65-115); Osmolality Calculated 290 mOsm/kg (285-295); Potassium 5.3 mmol/L (3.5-5.1); Sodium 136 mmol/L (136-145); Total Bilirubin 0.4 mg/dL (0.15-1.2); Total Protein 6.8 g/dL (6.6-8.7)
[2020-05-18 12:50] VITALS: BP 125/75; PULSE 59; RESP 18; O2SAT 96
[2020-05-18 13:06] LABS: Add Urine Microscopic? NO
[2020-05-18 13:18] LABS: Bilirubin Urine 1+ (Negative); Blood Urine Neg (Negative); Glucose Urine UA 1+ (Normal); Ketones Urine Negative (Negative); Leukocyte Esterase Urine Negative (Negative); Nitrate Urine Negative (Negative); Protein Urine Neg (Negative); Urine Appearance Clear (CLEAR); Urine Color Yellow (Yellow); Urobilinogen Urine Norm (Negative); pH Urine 6 (5-7)
[2020-05-18 13:21] LABS: Amphetamines Screen Urine Negative (Negative); Barbiturates Screen Urine Negative (Negative); Benzodiazepines Screen Urine Negative (Negative); Cocaine Screen Urine Negative (Negative); Opiate Screen Urine Negative (Negative); PCP Screen Urine Negative (Negative); THC Screen Urine Negative (Negative)
[2020-05-18 13:50] VITALS: BP 121/82; PULSE 61; RESP 18; O2SAT 98
[2020-05-18 13:57] VITALS: BP 136/99; PULSE 66; RESP 18; O2SAT 98
--- NOTE | 2020-05-21 12:26 | DCPLANNER ---
Addendum entered by Lizett Castellano 05/21/20 12:37: Patient has [facility], [facility] to the [facility] for a [facility] to be [facility]. Original Note: sap solution manager consultant had message to schedule a follow up appointment for patient with Dr. Arana. sap solution manager consultant called Dr. Garcia office, unable to speak with anyone at this time. A voicemail was left for hospice care transitions coordinator, Zoya Shah, with patients information and reason for followup. Patients information will be printed and reviewed, clinic will call patient with appointment information.
--- NOTE | 2020-05-25 09:59 | DCPLANNER ---
apartment maintenance manager had message to schedule an MRI head, carotid, echo cardiogram, carotid doppler, and an intracranial MRA. apartment maintenance manager can not order any these from the ER due to patient having [facility] insurance. apartment maintenance manager did make a referral to Dr. Arana, spoke with Zoya, infection prevention coordinator, and let her know that the ER physician wanted these ordered but that they could not be ordered from the ER, due to patient having [facility] insurance.
--- NOTE | 2020-06-27 12:54 | DCPLANNER ---
Patient had an appointment scheduled but the appointment had been cancelled.
== END 2020-05-18 13:58 | disposition home or self-care (01) ==
PROVIDERS: Emergency Provider Family Medicine; PCP Nurse Practitioner
DX: G45.9 Transient cerebral ischemic attack, unspecified (principal); E87.5 Hyperkalemia; Z79.82 Long term (current) use of aspirin; Z79.02 Long term (current) use of antithrombotics/antiplatelets; Z79.899 Other long term (current) drug therapy
CPT/HCPCS: 12345; 36416; 70450; 80053; 80306; 81003; 82962; 85025; 85610; 85730; 93005; 99282; 99283

== ENCOUNTER 2020-07-01 12:22 | Emergency (ER) | payer OTHER, MEDICARE, SELFPAY ==
[2020-07-01 12:41] VITALS: BP 147/96; PULSE 85; PULSE 86; RESP 14; RESP 20; TEMP 36.6; O2SAT 90; O2SAT 93; BMI 32.1
--- NOTE | 2020-07-01 12:57 | XRR_ITS ---
PROCEDURE INFORMATION: Exam: XR Chest, 1 View Exam date and time: 07/01/2020 1:08 PM Age: 74 years old Clinical indication: Dyspnea; Additional info: Dyspnea. Covid symptoms TECHNIQUE: Imaging protocol: XR of the chest Views: Frontal portable upright view of the chest. COMPARISON: No relevant prior studies available. FINDINGS: Lungs: Mild patchy peripheral airspace opacities left lateral mid-upper lung zone. The pulmonary vasculature is normal. Lateral right mid lung zone subsegmental atelectasis. Pleural space: No pleural effusion. No pneumothorax. Heart/Mediastinum: The heart is normal in size and contour. Probable moderate hiatal hernia. Vasculature: Mild tortuosity of the descending thoracic aorta. Bones/joints: Right shoulder reverse arthroplasty, with inferior mild subluxation of the humeral component. XR/XR chest 1V portable [id number] IMPRESSION: 1. Mild patchy peripheral airspace opacities left lateral mid-upper lung zone. Pneumonitis, including viral pneumonitis, is difficult to exclude. Clinical correlation is recommended. 2. Lateral right mid lung zone subsegmental atelectasis. 3. Probable moderate hiatal hernia. Correlation with nonemergent esophagogram recommended if not previously documented.
--- NOTE | 2020-07-01 13:03 | ECG_ITS ---
[facility] Test Date: 2020-07-01 Pat Name: Howard Williamson Department: Room: Gender: Male Inventory Control Manager: : 1945 Requested By: Tiago Minor Order Number: [id number] Maritza MD: Amanda Flores M.D. Measurements Intervals [place] Rate: 75 P: 7 ME: 216 QRS: -9 QRSD: 73 T: 2 QT: 360 QTc: 403 Interpretive Statements SINUS RHYTHM WITH FIRST DEGREE AV BLOCK SEPTAL MYOCARDIAL INFARCTION , OF INDETERMINATE AGE [40+ ms Q WAVE IN V1/V2] INFERIOR MYOCARDIAL INFARCTION , PROBABLY OLD [40+ ms Q WAVE AND/OR ST/T ABNORMALITY IN II/aVF] Compared to ECG 05/18/2020 11:37:22 Myocardial infarct finding now present Sinus bradycardia no longer present T-wave abnormality no longer present Electronically Signed On 07-02-2020 17:26:06 ROLL TENSION TESTER by Amanda Flores M.D. [id number]
[2020-07-01 13:10] VITALS: O2SAT 93
[2020-07-01 13:14] VITALS: BP 147/96; PULSE 85; RESP 20; O2SAT 93
[2020-07-01 13:17] LABS: Basophils % 0.3 %; Eosinophils # 0.1 10^3/uL (0.0-0.8); Eosinophils % 1.2 %; Hematocrit 42.9 % (42.0-52.0); Hemoglobin 13.8 g/dL (11.7-16.6); Lymphocytes % 17.6 %; Mean Corpuscular HGB Conc 32.2 g/dL (30.0-36.0); Mean Corpuscular Hemoglobin 28.5 pg (28.0-34.0); Mean Corpuscular Volume 88.5 fL (80-94); Mean Platelet Volume 10.9 fL (7.4-10.4); Monocytes # 0.4 10^3/uL (0.2-0.9); Monocytes % 6.8 %; Neutrophils % 73.4 %; Nucleated Red Blood Cells % 0 %; Platelet Count 243 10^3/cmm (130-400); Red Blood Count 4.85 10^6/uL (4.1-5.3); Red Cell Distribution Width 12.9 % (12.1-15.1); White Blood Count 5.7 10^3/uL (4.0-10.0)
--- NOTE | 2020-07-01 13:17 | W.ED.COVID ---
HPI - COVID General: Chief Complaint: COVID symptoms Stated Complaint: SOB, LOSS OF APPETITE, IS COVID + Time Seen by Provider: 07/01/20 12:37 Triage information: Has fever, cough or shortness of breath. Exposure to COVID + person last 14 days History of Present Illness: HPI Narrative: The patient comes to the ER complaining of 7 days of Covid-like symptoms. His tested positive a few days ago. admits shortness of breath. no cough or fevers. Chills several days ago but no fever/chills since. MD complaint: reported COVID exposure and has COVID symptoms COVID 19 common symptoms: positive fever(s), chills, non-productive cough, dyspnea, fatigue, body aches, headache(s) and loss of sense of smell and/or taste; negative throat pain, nasal congestion, nausea, vomiting or diarrhea COVID 19 other sytmptoms: negative chest pain, requiring oxygen, requiring more oxygen or respiratory distress Onset (ago): day(s) (7) Severity: mild Treatment prior to arrival: none COVID Results: SARS-CoV-2 Antigen (Rapid) Positive (Negative) H 07/01/20 13:15 07/01/20 Review of Systems General: Reports: 10 or more systems reviewed and unremarkable except in HPI and below Const: Reports: fever(s), chills, body aches and fatigue Eyes: Denies: change in vision, blurry vision or eye redness ENMT: Denies: throat pain or nasal congestion Card: Denies: chest pain Resp: Reports: dyspnea and non-productive cough GI: Denies: nausea, vomiting or diarrhea : Denies: flank pain, urinary frequency or urinary urgency Musc: Denies: neck pain, back pain, extremity pain, joint pain, joint redness, limited range of motion or muscle weakness Skin/Breast: Denies: rash, pruritus, erythema, skin pain or skin tenderness Neuro: Reports: headache(s) Psych: Denies: anxiety or depression Endo: Denies: polyuria All/Imm: Denies: urticaria, throat swelling or tongue swelling Physical Exam Const: COMMON NORMALS: no acute distress, average body habitus, patient oriented x3, no limitations, healthy appearing, alert and well nourished GENERAL APPEARANCE: cooperative, comfortable, well kempt and well developed ORIENTATION/CONSCIOUSNESS: Yes awake, Yes oriented to person, Yes oriented to place and Yes oriented to time HENMT: COMMON NORMALS: normocephalic, external ears normal and Normal external nose present HEAD & SCALP: normal to inspection and normocephalic NOSE: Normal external nose present EXTERNAL EAR: Yes external ears normal MOUTH: Normal oral and palatal mucosa present THROAT: posterior oropharynx normal Eye: COMMON NORMALS: Equal, round and reactive pupils present and EOMs intact bilaterally GENERAL EYE: appearance normal, both eyes and all related structures PUPIL: Yes Equal, round and reactive pupils present Neck/C-Spine: COMMON NORMALS: full ROM, no lymphadenopathy, no meningeal signs and no JVD GENERAL: Yes normal visual inspection Lymph: LYMPHATIC: no lymphadenopathy noted Chest: COMMONS NORMALS: normal inspection of the chest and normal palpation of entire chest wall Resp: COMMON NORMALS: normal respiratory effort, No retractions, No use of accessory muscles, clear to auscultation bilaterally and percussion normal EFFORT & INSPECTION: Yes able to speak in complete sentences AUSCULTATION: clear to auscultation bilaterally PERCUSSION: percussion normal Cardio: COMMON NORMALS: no JVD, regular rate, regular rhythm, S1 normal heart sound present, S2 normal heart sound present and Peripheral pulses 2+ throughout RATE: regular rate RHYTHM: regular rhythm HEART SOUNDS: S1 normal heart sound present and S2 normal heart sound present PERIPHERAL PULSES: Peripheral pulses 2+ throughout GI: COMMON NORMALS: Normal to inspection, nondistended, normoactive bowel sounds present, Soft to palpation, non-tender and no masses INSPECTION: Yes normal to inspection PALPATION: Yes Soft to palpation : COMMON NORMALS: Yes no CVA tenderness BLADDER/KIDNEY EXAM: Yes no CVA tenderness Back/Pelvis: COMMON NORMALS: no CVA tenderness, thoracic and lumbar spine normal to inspection, no thoracic nor lumbar tenderness and thoraco-lumbar ROM normal Extremity: COMMON NORMALS: normal to inspection, full ROM, capillary refill normal, no joint enlargement and no pedal edema GENERAL: Yes normal exam except as noted Neuro: COMMON NORMALS: patient oriented x3, CN's II-XII intact bilaterally, moves all extremities, no focal motor deficits, no sensory deficits noted and gait normal SENSORIUM/ORIENTATION: Yes alert, Yes oriented to person, Yes oriented to place and Yes oriented to time MENINGEAL SIGNS: Yes no meningeal signs Psych: COMMON NORMALS: mental status grossly normal, Normal thought process present, cooperative, normal affect and speech normal APPEARANCE: Yes well kempt ATTITUDE: Yes calm SPEECH: Yes normal speech MOOD & AFFECT: Yes anxious THOUGHT PROCESS: Normal thought process present Skin: COMMON NORMALS: no rashes or lesions noted GENERAL SKIN EXAM: no rashes or lesions noted Course Vital Signs: Vital signs: Vital Signs Temperature 97.9 F 07/01/20 12:41 Pulse Rate 80 07/01/20 13:40 Respiratory Rate 18 07/01/20 13:40 Blood Pressure 147/96 07/01/20 13:14 Pulse Oximetry 94 07/01/20 13:40 MDM - COVID MDM Narrative: Medical decision making narrative: The patient became sick on June 20 and he is out of the window for the Covid antibody drug. He swabbed positive today. Improved with albuterol. Chest x-ray shows pneumonitis most likely viral. We will discharge him with steroid pack, azithromycin, and albuterol inhaler to help with his symptoms. I placed a case management referral for a telehealth visit tomorrow. Return to the ER with worsening symptoms otherwise follow-up with your physician in a couple days if possible Lab Data: Labs: Lab Results 07/01/20 07/01/20 07/01/20 Range/Units 13:00 13:00 13:00 WBC 5.7 (4.0-10.0) 10^3/ uL RBC 4.85 (4.1-5.3) 10^6/u L Hgb 13.8 (11.7-16.6) g/dL Hct 42.9 (42.0-52.0) % MCV 88.5 (80-94) fL MCH 28.5 (28.0-34.0) pg MCHC 32.2 (30.0-36.0) g/dL RDW 12.9 (12.1-15.1) % Plt Count 243 (130-400) 10^3/c mm MPV 10.9 H (7.4-10.4) fL Neut % (Auto) 73.4 % Lymph % (Auto) 17.6 % [place] % (Auto) 6.8 % Eos % (Auto) 1.2 % Baso % (Auto) 0.3 % Neut # (Auto) 4.20 (1.8-7.7) 10^3/u L Lymph # (Auto) 1.0 (0.8-4.8) 10^3/u L [place] # (Auto) 0.4 (0.2-0.9) 10^3/u L Eos # (Auto) 0.1 (0.0-0.8) 10^3/u L Baso # (Auto) 0.0 (0.0-0.1) 10^3/u L Nucleated RBC % (a uto) 0 % Nucleated RBCs # 0.0 /100WBC D-Dimer (0-0.59) ug/mIFE U Sodium 137 (136-145) mmol/L Potassium 4.6 (3.5-5.1) mmol/L Chloride 99 (98-107) mmol/L Carbon Dioxide 23 (22-29) mmol/L Anion Gap 19.6 H (5-19) BUN 22 (8-23) mg/dL Creatinine 1.5 H (0.7-1.2) mg/dL GFR Calculation Not Reportable Glucose 216 H (65-115) mg/dL Calculated Osmolal ity 294 (285-295) mOsm/k g Lactic Acid 2.7 H (0.5-2.2) mmol/L Calcium 8.6 (8.5-10.5) mg/dL Total Bilirubin 0.8 (0.15-1.2) mg/dL AST 22 (0-40) U/L ALT 14 (0-41) U/L Alkaline Phosphata se 96 (40-130) IU/L Troponin T Gen 5 n g/L (0-15) ng/L C-Reactive Protein 63.3 H (0.0-4.9) mg/L Total Protein 6.8 (6.6-8.7) g/dL Albumin 4.0 (3.5-5.2) g/dL Globulin 2.8 (1.3-4.6) g/dL SARS-CoV-2 Ag (Rap id) (Negative) 07/01/20 07/01/20 07/01/20 Range/Units 13:00 13:00 13:15 WBC (4.0-10.0) 10^3/ uL RBC (4.1-5.3) 10^6/u L Hgb (11.7-16.6) g/dL Hct (42.0-52.0) % MCV (80-94) fL MCH (28.0-34.0) pg MCHC (30.0-36.0) g/dL RDW (12.1-15.1) % Plt Count (130-400) 10^3/c mm MPV (7.4-10.4) fL Neut % (Auto) % Lymph % (Auto) % [place] % (Auto) % Eos % (Auto) % Baso % (Auto) % Neut # (Auto) (1.8-7.7) 10^3/u L Lymph # (Auto) (0.8-4.8) 10^3/u L [place] # (Auto) (0.2-0.9) 10^3/u L Eos # (Auto) (0.0-0.8) 10^3/u L Baso # (Auto) (0.0-0.1) 10^3/u L Nucleated RBC % (a uto) % Nucleated RBCs # /100WBC D-Dimer 2.07 H (0-0.59) ug/mIFE U Sodium (136-145) mmol/L Potassium (3.5-5.1) mmol/L Chloride (98-107) mmol/L Carbon Dioxide (22-29) mmol/L Anion Gap (5-19) BUN (8-23) mg/dL Creatinine (0.7-1.2) mg/dL GFR Calculation Glucose (65-115) mg/dL Calculated Osmolal ity (285-295) mOsm/k g Lactic Acid (0.5-2.2) mmol/L Calcium (8.5-10.5) mg/dL Total Bilirubin (0.15-1.2) mg/dL AST (0-40) U/L ALT (0-41) U/L Alkaline Phosphata se (40-130) IU/L Troponin T Gen 5 n g/L 15 (0-15) ng/L C-Reactive Protein (0.0-4.9) mg/L Total Protein (6.6-8.7) g/dL Albumin (3.5-5.2) g/dL Globulin (1.3-4.6) g/dL SARS-CoV-2 Ag (Rap id) Positive H (Negative) COVID Results: SARS-CoV-2 Antigen (Rapid) Positive (Negative) H 07/01/20 13:15 07/01/20 Discharge Plan Discharge Patient Disposition: Home Clinical Impression: COVID-19 Condition: Stable Prescriptions: New azithromycin 250 mg tablet 250 mg PO DAILY 4 Days Qty: 4 RF: 0 Medrol (Ramesh) 4 mg tablets,dose pack See Rx Instructions .ROUTE .COMPLEX Qty: 21 RF: 0 albuterol sulfate 90 mcg/actuation HFA aerosol inhaler 2 inh inhalation Q6H PRN (Reason: shortness of breath or wheezing) Qty: 1 RF: 0 No Action aspirin 325 mg Tablet 325 mg PO DAILY RF: 0 metoprolol tartrate 100 mg Tablet 100 mg PO BID RF: 0 allopurinol 100 mg Tablet 100 mg PO DAILY RF: 0 levothyroxine 88 mcg Tablet 88 mcg PO DAILY RF: 0 tamsulosin 0.4 mg Capsule 0.4 mg PO QPM RF: 0 metformin 1,000 mg Tablet 1,000 mg PO BID RF: 0 lisinopril 10 mg Tablet 10 mg PO BID RF: 0 omeprazole 20 mg Capsule,Delayed Release(Dr/Ec) 20 mg PO DAILY RF: 0 hydrochlorothiazide 25 mg Tablet 25 mg PO DAILY RF: 0 cholecalciferol (vitamin D3) [Vitamin D3] 25 mcg (1,000 unit) Capsule 1,000 unit PO BID RF: 0 Vitamin B-12 1 tab PO BID RF: 0 clopidogrel [Plavix] 75 mg tablet 75 mg PO DAILY Qty: 30 RF: 0 atorvastatin 40 mg tablet 40 mg PO DAILY Qty: 30 RF: 0 Discharge Orders: Discharge ED (Routine); Ordered 07/01/20 Ordered By: Tiago Minor Referrals: Mini Vasquez FNP [Primary Care Provider] - Discharge Diet: Advance as tolerated Discharge Activity: Resume usual activity Patient Instructions: Upper Respiratory Infection (ED) Activity Restrictions/Additional Instructions: You have COVID-19. You are out of the window for the special antibiotic treatment as your symptoms started on June 20. Please follow-up with your primary care physician tomorrow to monitor your symptoms and return to the ER with worsening symptoms. I have discharged you with an antibiotic, a steroid pack, and an albuterol inhaler. Please take these as directed and return to the ER with worsening symptoms at any time Coding Level of Care Code ED S[employer] Ebusiness Operations for Fideliag Fwd Exam Comprehensive
[2020-07-01] MEDS: acetaminophen 325 mg Tablet 650 MG PO (13:19)
[2020-07-01 13:36] LABS: D Dimer 2.07 ug/mIFEU (0-0.59)
[2020-07-01] MEDS: albuterol 8 gm MDI 2 PUFF INHALATION (13:37)
[2020-07-01 13:40] VITALS: PULSE 80; RESP 18; O2SAT 94
[2020-07-01 13:40] LABS: Lactic Sepsis W/Reflex 2.7 mmol/L (0.5-2.2); Troponin T (5th) Once 15 ng/L (0-15)
[2020-07-01 13:41] LABS: Alanine Aminotransferase 14 U/L (0-41); Alkaline Phosphatase 96 IU/L (40-130); Anion Gap 19.6 (5-19); Aspartate Amino Transferase 22 U/L (0-40); Blood Urea Nitrogen 22 mg/dL (8-23); C Reactive Protein 63.3 mg/L (0.0-4.9); Calcium 8.6 mg/dL (8.5-10.5); Carbon Dioxide 23 mmol/L (22-29); Chloride 99 mmol/L (98-107); Globulin 2.8 g/dL (1.3-4.6); Glucose 216 mg/dL (65-115); Osmolality Calculated 294 mOsm/kg (285-295); Potassium 4.6 mmol/L (3.5-5.1); Sodium 137 mmol/L (136-145); Total Bilirubin 0.8 mg/dL (0.15-1.2); Total Protein 6.8 g/dL (6.6-8.7)
[2020-07-01] MEDS: dextrose 5%-sod chloride 0.45% 1,000 ML 500 ML IV ×2 (13:50→15:01)
[2020-07-01 13:51] LABS: SARS Covid-2 Antigen Positive (Negative)
--- NOTE | 2020-07-01 14:17 | PC.NURSE ---
Pt symptoms started on 06/20/[address] Minor notified.
[2020-07-01 14:45] LABS: Reflex Lactate Order REFLEX LACTIC ORDERD
[2020-07-01] MEDS: azithromycin 250 mg Tablet 500 MG PO (14:59)
[2020-07-01] MEDS: dexamethasone 10 mg/mL INJ IM (15:15)
[2020-07-01 15:21] VITALS: BP 137/83; PULSE 88; RESP 18; TEMP 36.4; O2SAT 95
--- NOTE | 2020-07-02 14:03 | DCPLANNER ---
Addendum entered by Lizett Castellano 07/03/20 07:23: The [facility] called counter caser took patients information, the clinic will call patient and set up a tele health visit. Original Note: chemistry manager had message to schedule a follow up appointment for patient for a tele health visit with primary care physician. chemistry manager called the [facility] clinic, left a voicemail for the clinic to return foster care case manager phone call so that visit could be scheduled.
== END 2020-07-01 15:27 | disposition home or self-care (01) ==
PROVIDERS: Emergency Provider Family Medicine; PCP Nurse Practitioner
DX: U07.1 COVID-19 (principal); Z79.82 Long term (current) use of aspirin; Z79.02 Long term (current) use of antithrombotics/antiplatelets
CPT/HCPCS: 12345; 71045; 80053; 83605; 84484; 85025; 85378; 86140; 87426; 93005; 94640; 96360; 99283; 99284; J1100; J3535; J7799; Q0144

== ENCOUNTER 2020-07-11 11:39 | Inpatient (IN) | payer OTHER, MEDICARE, SELFPAY ==
[2020-07-11] VITALS (12 sets, daily range): BP systolic 106–145; BP diastolic 73–96; PULSE 86–129; RESP 13–22; TEMP 36.3–36.6; O2SAT 91–99; BMI 30.2
--- NOTE | 2020-07-11 12:16 | XR_ITS ---
WS: [id number] Portable AP upright chest, 07/11/2020 Clinical Data: dyspnea Comparison: Portable chest, 07/01/2020. Findings: The peripheral patchy opacities have increased slightly compared to the prior x-ray. There is elevation of the right diaphragm. The heart is not enlarged. No pneumothorax is present. The aorti c arch and descending aorta show tortuosity. Monitor leads are on the chest wall. There is a right sh oulder arthroplasty. There is a hiatal hernia behind the heart. XR/XR chest 1V portable [id number] Impression: 1. Slight increase in peripheral bilateral patchy pulmonary opacities. 2. Atherosclerosis and hiatal hernia.
--- NOTE | 2020-07-11 12:18 | ECG_ITS ---
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 Measurements Intervals [place] Rate: 126 P: 24 [place]: 203 QRS: 4 QRSD: 70 T: 40 QT: 335 QTc: 486 Interpretive Statements SINUS TACHYCARDIA NONSPECIFIC ST & T-WAVE ABNORMALITY Compared to ECG 07/01/2020 13:22:56 T-wave abnormality now present Sinus rhythm no longer present First degree AV block no longer present Myocardial infarct finding no longer present Electronically Signed On 07-11-2020 17:58:22 LIGHT EQUIPMENT OPERATOR by Ochoa Bernal M.D. [id number]
--- NOTE | 2020-07-11 12:26 | ED_ITS ---
HPI - SOB/Dyspnea General: Chief Complaint: Shortness of Breath/Dyspnea Stated Complaint: WEAKNESS Time Seen by Provider: 07/11/20 12:15 History of Present Illness: HPI Narrative: The patient is a 75-year-old male with past medical history hypertension and diabetes. He says he got Covid approximately 3 weeks ago and has felt weak ever since. He says he has not been eating or drinking well and has not taken his blood pressure medicines for the past few days because his blood pressure has been low. This morning it was 100/70. He says he has no appetite and that the water has started tasting bad to him so he has not drink much liquids. He received steroids and antibiotic during his acute infection. He says when he stands up he feels lightheaded and mildly dizzy but right now laying in the hospital bed he just feels general fatigue and mild weakness. Denies shortness of breath, chest pain. Pertinent past history: diabetes Severity: mild Exacerbating factors: nothing Associated symptoms: Reports no associated symptoms; Deny abdominal pain, chest pain, dizziness, extremity pain, fever(s), orthopnea, palpitations or polyuria Review of Systems General: Reports: 10 or more systems reviewed and unremarkable except in HPI and below Const: Reports: fatigue; Denies: fever(s), chills or body aches Eyes: Denies: change in vision, blurry vision or eye redness ENMT: Denies: throat pain, swelling of lips/tongue, ear or mastoid pain or nasal congestion Card: Denies: chest pain, palpitations, irregular heart rhythm, edema, dyspnea on exertion or orthopnea Resp: Denies: dyspnea, productive cough or non-productive cough GI: Denies: abdominal pain, diarrhea or GI cramping : Denies: flank pain, urinary frequency or urinary urgency Musc: Denies: neck pain, back pain, extremity pain, joint pain, joint redness, limited range of motion or muscle weakness Skin/Breast: Denies: rash, pruritus, erythema, skin pain or skin tenderness Neuro: Denies: headache(s), numbness in extremities, weakness in extremities, sensory changes, difficulty walking, dizziness, confusion or Slurred speech present Psych: Denies: anxiety or depression Endo: Denies: polyuria All/Imm: Denies: urticaria, throat swelling or tongue swelling Physical Exam Const: COMMON NORMALS: no acute distress, average body habitus, patient oriented x3, no limitations, healthy appearing, alert and well nourished GENERAL APPEARANCE: cooperative, comfortable, well kempt and well developed ORIENTATION/CONSCIOUSNESS: Yes awake, Yes oriented to person, Yes oriented to place and Yes oriented to time HENMT: COMMON NORMALS: normocephalic, external ears normal and Normal external nose present HEAD & SCALP: normal to inspection and normocephalic NOSE: Normal external nose present EXTERNAL EAR: Yes external ears normal MOUTH: Normal oral and palatal mucosa present THROAT: posterior oropharynx normal Eye: COMMON NORMALS: Equal, round and reactive pupils present and EOMs intact bilaterally GENERAL EYE: appearance normal, both eyes and all related structures PUPIL: Yes Equal, round and reactive pupils present Neck/C-Spine: COMMON NORMALS: full ROM, no lymphadenopathy, no meningeal signs and no JVD GENERAL: Yes normal visual inspection Lymph: LYMPHATIC: no lymphadenopathy noted Chest: COMMONS NORMALS: normal inspection of the chest and normal palpation of entire chest wall Resp: COMMON NORMALS: normal respiratory effort, No retractions, No use of accessory muscles, clear to auscultation bilaterally and percussion normal EFFORT & INSPECTION: Yes able to speak in complete sentences AUSCULTATION: clear to auscultation bilaterally PERCUSSION: percussion normal Cardio: COMMON NORMALS: no JVD, regular rhythm, S1 normal heart sound present, S2 normal heart sound present and Peripheral pulses 2+ throughout RATE: tachycardic RHYTHM: regular rhythm HEART SOUNDS: S1 normal heart sound present and S2 normal heart sound present PERIPHERAL PULSES: Peripheral pulses 2+ throughout GI: COMMON NORMALS: Normal to inspection, nondistended, normoactive bowel sounds present, Soft to palpation, non-tender and no masses INSPECTION: Yes normal to inspection PALPATION: Yes Soft to palpation : COMMON NORMALS: Yes no CVA tenderness BLADDER/KIDNEY EXAM: Yes no CVA tenderness Back/Pelvis: COMMON NORMALS: no CVA tenderness, thoracic and lumbar spine normal to inspection, no thoracic nor lumbar tenderness and thoraco-lumbar ROM normal Extremity: COMMON NORMALS: normal to inspection, full ROM, capillary refill normal, no joint enlargement and no pedal edema GENERAL: Yes normal exam except as noted Neuro: COMMON NORMALS: patient oriented x3, CN's II-XII intact bilaterally, moves all extremities, no focal motor deficits, no sensory deficits noted and gait normal SENSORIUM/ORIENTATION: Yes alert, Yes oriented to person, Yes oriented to place and Yes oriented to time MENINGEAL SIGNS: Yes no meningeal signs Psych: COMMON NORMALS: mental status grossly normal, Normal thought process present, cooperative, normal affect and speech normal APPEARANCE: Yes well kempt ATTITUDE: Yes calm SPEECH: Yes normal speech THOUGHT PROCESS: Normal thought process present Skin: COMMON NORMALS: no rashes or lesions noted GENERAL SKIN EXAM: no rashes or lesions noted Course Vital Signs: Vital signs: Vital Signs Temperature 97.3 F L 07/11/20 11:53 Pulse Rate 93 07/11/20 19:12 Respiratory Rate 19 H 07/11/20 19:12 Blood Pressure 141/90 07/11/20 19:12 Pulse Oximetry 94 07/11/20 19:12 MDM - SOB/Dyspnea MDM Narrative: Medical decision making narrative: The patient came to the ER complaining of general weakness. He is 3 weeks post Covid and continues to feel fatigued and weak. Chest x-ray reveals he has bilateral lower lobe pneumonia and he was started on IV antibiotics. He also came in tachycardic had a liter of fluid did not improve his rate from the 120s to the 110s. Lactic acid is also elevated. Discussed with Dr. Flores who accepts admission for sepsis from pneumonia Lab Data: Labs: Lab Results 07/11/20 07/11/20 07/11/20 Range/Units 12:30 12:30 12:30 WBC 11.5 H (4.0-10.0) 10^3/ uL RBC 4.92 (4.1-5.3) 10^6/u L Hgb 14.3 (11.7-16.6) g/dL Hct 43.3 (42.0-52.0) % MCV 88.0 (80-94) fL MCH 29.1 (28.0-34.0) pg MCHC 33.0 (30.0-36.0) g/dL RDW 12.5 (12.1-15.1) % Plt Count 428 H (130-400) 10^3/c mm MPV 10.9 H (7.4-10.4) fL Neut % (Auto) 69.1 % Lymph % (Auto) 17.1 % [place] % (Auto) 9.9 % Eos % (Auto) 1.4 % Baso % (Auto) 1.1 % Neut # (Auto) 7.93 H (1.8-7.7) 10^3/u L Lymph # (Auto) 2.0 (0.8-4.8) 10^3/u L [place] # (Auto) 1.1 H (0.2-0.9) 10^3/u L Eos # (Auto) 0.2 (0.0-0.8) 10^3/u L Baso # (Auto) 0.1 (0.0-0.1) 10^3/u L Nucleated RBC % (a uto) 0 % Nucleated RBCs # 0.0 /100WBC Sodium 133 L (136-145) mmol/L Potassium 4.6 (3.5-5.1) mmol/L Chloride 96 L (98-107) mmol/L Carbon Dioxide 22 (22-29) mmol/L Anion Gap 19.6 H (5-19) BUN 32 H (8-23) mg/dL Creatinine 1.8 H (0.7-1.2) mg/dL GFR Calculation Not Reportable Glucose 188 H (65-115) mg/dL Calculated Osmolal ity 288 (285-295) mOsm/k g Lactic Acid 2.7 H (0.5-2.2) mmol/L Lactic Acid (Sepsi s) (0.5-2.2) mmol/L Calcium 10.1 (8.5-10.5) mg/dL Total Bilirubin 0.7 (0.15-1.2) mg/dL AST 16 (0-40) U/L ALT 16 (0-41) U/L Alkaline Phosphata se 110 (40-130) IU/L Troponin T Baselin e (0-15) ng/L Troponin T 120 Min picayune (0-15) ng/L Delta Troponin T (0-10) ABS# NT-Pro-B Natriuret Pep 146 H (0-125) pg/mL Total Protein 7.0 (6.6-8.7) g/dL Albumin 4.1 (3.5-5.2) g/dL Globulin 2.9 (1.3-4.6) g/dL 07/11/20 07/11/20 07/11/20 Range/Units 12:30 15:00 15:00 WBC (4.0-10.0) 10^3/ uL RBC (4.1-5.3) 10^6/u L Hgb (11.7-16.6) g/dL Hct (42.0-52.0) % MCV (80-94) fL MCH (28.0-34.0) pg MCHC (30.0-36.0) g/dL RDW (12.1-15.1) % Plt Count (130-400) 10^3/c mm MPV (7.4-10.4) fL Neut % (Auto) % Lymph % (Auto) % [place] % (Auto) % Eos % (Auto) % Baso % (Auto) % Neut # (Auto) (1.8-7.7) 10^3/u L Lymph # (Auto) (0.8-4.8) 10^3/u L [place] # (Auto) (0.2-0.9) 10^3/u L Eos # (Auto) (0.0-0.8) 10^3/u L Baso # (Auto) (0.0-0.1) 10^3/u L Nucleated RBC % (a uto) % Nucleated RBCs # /100WBC Sodium (136-145) mmol/L Potassium (3.5-5.1) mmol/L Chloride (98-107) mmol/L Carbon Dioxide (22-29) mmol/L Anion Gap (5-19) BUN (8-23) mg/dL Creatinine (0.7-1.2) mg/dL GFR Calculation Glucose (65-115) mg/dL Calculated Osmolal ity (285-295) mOsm/k g Lactic Acid (0.5-2.2) mmol/L Lactic Acid (Sepsi s) 3.0 H (0.5-2.2) mmol/L Calcium (8.5-10.5) mg/dL Total Bilirubin (0.15-1.2) mg/dL AST (0-40) U/L ALT (0-41) U/L Alkaline Phosphata se (40-130) IU/L Troponin T Baselin e 17 H (0-15) ng/L Troponin T 120 Min picayune 13.54 (0-15) ng/L Delta Troponin T -3.46 L (0-10) ABS# NT-Pro-B Natriuret Pep (0-125) pg/mL Total Protein (6.6-8.7) g/dL Albumin (3.5-5.2) g/dL Globulin (1.3-4.6) g/dL Discharge Plan Discharge Admit Provider: Hakeem Duran Clinical Impression: Sepsis Qualifiers: Sepsis type: sepsis due to unspecified organism Sepsis acute organ dysfunction status: unspecified Qualified Code(s): A41.9 - Sepsis, unspecified organism Pneumonia Qualifiers: Pneumonia type: due to unspecified organism Laterality: bilateral Lung location: lower lobe of lung Qualified Code(s): J18.9 - Pneumonia, unspecified organism Condition: Stable Coding Level of Care Code ED Clinic Receptionist for [facility] Fwd Exam Comprehensive
[2020-07-11 12:39] LABS: Basophils # 0.1 10^3/uL (0.0-0.1); Basophils % 1.1 %; Eosinophils # 0.2 10^3/uL (0.0-0.8); Eosinophils % 1.4 %; Hematocrit 43.3 % (42.0-52.0); Hemoglobin 14.3 g/dL (11.7-16.6); Lymphocytes % 17.1 %; Mean Corpuscular Hemoglobin 29.1 pg (28.0-34.0); Mean Platelet Volume 10.9 fL (7.4-10.4); Monocytes # 1.1 10^3/uL (0.2-0.9); Monocytes % 9.9 %; Neutrophils # 7.93 10^3/uL (1.8-7.7); Neutrophils % 69.1 %; Nucleated Red Blood Cells % 0 %; Platelet Count 428 10^3/cmm (130-400); Red Blood Count 4.92 10^6/uL (4.1-5.3); Red Cell Distribution Width 12.5 % (12.1-15.1); White Blood Count 11.5 10^3/uL (4.0-10.0)
[2020-07-11] MEDS: sodium chloride 0.9% 1,000 ML 999 ML IV (12:57)
[2020-07-11 13:10] LABS: Lactic Sepsis W/Reflex 2.7 mmol/L (0.5-2.2)
[2020-07-11 13:12] LABS: Troponin(5th) Baseline 17 ng/L (0-15)
[2020-07-11 13:17] LABS: Alanine Aminotransferase 16 U/L (0-41); Albumin Level 4.1 g/dL (3.5-5.2); Alkaline Phosphatase 110 IU/L (40-130); Anion Gap 19.6 (5-19); Aspartate Amino Transferase 16 U/L (0-40); Blood Urea Nitrogen 32 mg/dL (8-23); Calcium 10.1 mg/dL (8.5-10.5); Carbon Dioxide 22 mmol/L (22-29); Chloride 96 mmol/L (98-107); Globulin 2.9 g/dL (1.3-4.6); Glucose 188 mg/dL (65-115); NT Pro B Type Natriuretic Pept 146 pg/mL (0-125); Osmolality Calculated 288 mOsm/kg (285-295); Potassium 4.6 mmol/L (3.5-5.1); Sodium 133 mmol/L (136-145); Total Bilirubin 0.7 mg/dL (0.15-1.2)
[2020-07-11] MEDS: levofloxacin-dextrose 5 % 750 MG/150 ML PREMIX 100 MG IV (14:09)
--- NOTE | 2020-07-11 14:18 | ECG_ITS ---
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 Measurements Intervals [place] Rate: 127 P: 19 [place]: 187 QRS: 4 QRSD: 76 T: 25 QT: 389 QTc: 566 Interpretive Statements SINUS TACHYCARDIA Compared to ECG 07/11/2020 11:58:48 T-wave abnormality no longer present Electronically Signed On 07-11-2020 18:12:32 EXPEDITER SERVICE ORDER by Ochoa Bernal M.D. [id number]
[2020-07-11 14:23] LABS: Reflex Lactate Order REFLEX LACTIC ORDERD
[2020-07-11 15:56] LABS: Troponin 5 2HR 13.54 ng/L (0-15)
[2020-07-11 16:08] LABS: Troponin 5 2HR Delta -3.46 ABS# (0-10)
--- NOTE | 2020-07-11 17:11 | PM.HP ---
Providers/Chief Complaint Primary Care Provider: DARELL Luke Chief Complaint: WEAKNESS History of Present Illness Howard Williamson is a 75 year old male with past medical history of dyslipidemia, hypertension, gout, BPH, GERD, chronic kidney disease, diabetes and COVID-19 infection diagnosed about 3 weeks ago treated in outpatient settings with steroids who is coming to emergency room with complaints of generalized weakness and tiredness which started about 10 days ago. It is described as moderate intensity constant. No modifying factors. He denies any focal weakness or sensory loss. No problems with speech, balance, gait. No pain. He denies any fever or chills. No significant cough. Denies shortness of breath. No nausea or vomiting. No diarrhea. He thinks that he might be a little dehydrated since he does not drink too much water because he does not like it. He denies similar episodes in the past. He is compliant with his medications. There were no recent changes however. He completed course of steroids about the same time as his weakness started. Denies similar episodes in the past. Review of Systems General: Reports: 10 or more systems reviewed and unremarkable except in HPI and below Medications/Allergies Home Medications Medication Instructions Recorded Confirmed Last Taken Type Vitamin B-12 1 tab PO BID@0900,209905/16/20 07/11/20 05/18/20 History allopurinol 100 mg PO DAILY@0900 05/16/20 07/11/20 07/10/20 History aspirin 325 mg PO DAILY@0900 05/16/20 07/11/20 07/10/20 History cholecalciferol (vitamin D3) 1,000 unit PO BID@09,209905/16/20 07/11/20 07/10/20 History [Vitamin D3] hydrochlorothiazide 25 mg PO DAILY@0900 05/16/20 07/11/20 05/18/20 History levothyroxine 88 mcg PO DAILY@0900 05/16/20 07/11/20 07/10/20 History lisinopril 10 mg PO BID@0900,209905/16/20 07/11/20 05/18/20 History metformin 1,000 mg PO BID@0900,209905/16/20 07/11/20 07/10/20 History metoprolol tartrate 100 mg PO BID@0900,2100 05/16/20 07/11/20 07/10/20 History omeprazole 20 mg PO DAILY@0900 05/16/20 07/11/20 07/10/20 History tamsulosin 0.4 mg PO DAILY@2100 05/16/20 07/11/20 07/10/20 History albuterol sulfate 2 inh INHALATION Q6H PRN #1 g 07/01/20 07/11/20 07/11/20 Rx atorvastatin 40 mg PO DAILY@0907/11/20 07/11/20 07/10/20 History clopidogrel [Plavix] 75 mg PO DAILY@0907/11/20 07/11/20 07/10/20 History meloxicam See Rx Instructions .ROUTE .COMPLEX 07/11/20 07/11/20 07/10/20 History Allergies Allergy/AdvReac Type Severity Reaction Status Date / Time No Known Allergies Allergy Verified 05/18/20 11:45 Vitals/I&O/Wt Last Vital Signs Temp 97.3 F L 07/11/20 11:53 Pulse 105 H 07/11/20 16:17 Resp 15 07/11/20 16:17 BP 127/93 07/11/20 16:17 Pulse Ox 98 07/11/20 16:17 07/11/20 07/11/20 07/11/20 06:59 14:59 22:59 Intake Total 1000 / 1000 150 / 1150 Balance 1000 / 1000 150 / 1150 Weight last 48 hrs Weight 106.594 kg Physical Exam Narrative: EXAM NARRATIVE: The patient is awake alert and oriented. In no acute distress. Mood and affect are appropriate. Responses are adequate. Skin is warm and dry. Dry mucous membranes Eyes PERRLA, extraocular muscles are intact Normal speech Cranial nerves II through XII are grossly intact No focal weakness or sensory loss Lungs are clear. No respiratory distress Heart S1, S2, regular tachycardia Neck is supple. No JVD Extremities. No edema cyanosis or calf tenderness bilaterally Data : 07/11/20 12:30 07/11/20 12:30 Other Labs: Laboratory Results WBC 11.5 10^3/uL (4.0-10.0) H 07/11/20 12:30 RBC 4.92 10^6/uL (4.1-5.3) 07/11/20 12:30 Hgb 14.3 g/dL (11.7-16.6) 07/11/20 12:30 Hct 43.3 % (42.0-52.0) 07/11/20 12:30 MCV 88.0 fL (80-94) 07/11/20 12:30 MCH 29.1 pg (28.0-34.0) 07/11/20 12:30 MCHC 33.0 g/dL (30.0-36.0) 07/11/20 12:30 RDW 12.5 % (12.1-15.1) 07/11/20 12:30 Plt Count 428 10^3/cmm (130-400) H 07/11/20 12:30 MPV 10.9 fL (7.4-10.4) H 07/11/20 12:30 Neut % (Auto) 69.1 % 07/11/20 12:30 Lymph % (Auto) 17.1 % 07/11/20 12:30 Delta % (Auto) 9.9 % 07/11/20 12:30 Eos % (Auto) 1.4 % 07/11/20 12:30 Baso % (Auto) 1.1 % 07/11/20 12:30 Neut # (Auto) 7.93 10^3/uL (1.8-7.7) H 07/11/20 12:30 Lymph # (Auto) 2.0 10^3/uL (0.8-4.8) 07/11/20 12:30 Delta # (Auto) 1.1 10^3/uL (0.2-0.9) H 07/11/20 12:30 Eos # (Auto) 0.2 10^3/uL (0.0-0.8) 07/11/20 12:30 Baso # (Auto) 0.1 10^3/uL (0.0-0.1) 07/11/20 12:30 Nucleated RBC % (auto) 0 % 07/11/20 12:30 Nucleated RBCs # 0.0 /100WBC 07/11/20 12:30 Sodium 133 mmol/L (136-145) L 07/11/20 12:30 Potassium 4.6 mmol/L (3.5-5.1) 07/11/20 12:30 Chloride 96 mmol/L (98-107) L 07/11/20 12:30 Carbon Dioxide 22 mmol/L (22-29) 07/11/20 12:30 Anion Gap 19.6 (5-19) H 07/11/20 12:30 BUN 32 mg/dL (8-23) H 07/11/20 12:30 Creatinine 1.8 mg/dL (0.7-1.2) H 07/11/20 12:30 GFR Calculation Not Reportable 07/11/20 12:30 Glucose 188 mg/dL (65-115) H 07/11/20 12:30 Calculated Osmolality 288 mOsm/kg (285-295) 07/11/20 12:30 Lactic Acid 2.7 mmol/L (0.5-2.2) H 07/11/20 12:30 Lactic Acid (Sepsis) 3.0 mmol/L (0.5-2.2) H 07/11/20 15:00 Calcium 10.1 mg/dL (8.5-10.5) 07/11/20 12:30 Total Bilirubin 0.7 mg/dL (0.15-1.2) 07/11/20 12:30 AST 16 U/L (0-40) 07/11/20 12:30 ALT 16 U/L (0-41) 07/11/20 12:30 Alkaline Phosphatase 110 IU/L (40-130) 07/11/20 12:30 Troponin T Baseline 17 ng/L (0-15) H 07/11/20 12:30 Troponin T 120 Minute 13.54 ng/L (0-15) 07/11/20 15:00 Delta Troponin T -3.46 ABS# (0-10) L 07/11/20 15:00 NT-Pro-B Natriuret Pep 146 pg/mL (0-125) H 07/11/20 12:30 Total Protein 7.0 g/dL (6.6-8.7) 07/11/20 12:30 Albumin 4.1 g/dL (3.5-5.2) 07/11/20 12:30 Globulin 2.9 g/dL (1.3-4.6) 07/11/20 12:30 Impressions Chest X-Ray 07/11/20 12:16 Impression: 1. Slight increase in peripheral bilateral patchy pulmonary opacities. 2. Atherosclerosis and hiatal hernia. A&P Additional A&P Information 75-year-old male with past medical history of hypertension, diabetes, chronic kidney disease, GERD, BPH, hypothyroidism, recent COVID-19 infection treated in outpatient settings who is presenting with complaints of generalized weakness. Chest x-ray shows some worsening bilateral infiltrates. However he denies any respiratory complaints or symptoms. A febrile. Has mild white blood cell count elevation and mild tachycardia which she responded well to IV fluids given in emergency room. Currently hemodynamically stable. Possible pneumonia. We will continue Levaquin and IV fluids. Respiratory treatments as needed. I will check his procalcitonin level. If it is normal we will stop the Levaquin. The changes on the chest x-ray could be secondary to recent COVID-19 infection. Possible sepsis secondary to pneumonia. Tachycardia has improved with IV fluids. However it could be related to dehydration. We will continue hydration and treatment of possible pneumonia. Generalized weakness. This could be secondary to above. However could be also residual weakness from recent COVID-19 infection and viral syndrome. Will order B12 level and TSH to rule out other possibilities. PT OT eval and treat. Will ask case management to assess his discharge needs. Hypertension. We will hold his lisinopril and hydrochlorothiazide. We will continue beta-yang. Will use as needed labetalol. History of BPH and GERD. We will continue home medication. History of diabetes. We will hold his home Metformin and cover him with insulin sliding scale. The patient denies heart disease but he is on dual antiplatelet therapy. Possible coronary artery disease. He denies any chest pain or shortness of breath. No diaphoresis. Doubt acute coronary syndrome. We will continue his aspirin and Plavix. History of GERD. We will continue his home medication. DVT prophylaxis. Teds and SCDs. No anticoagulation because he is already on dual antiplatelet therapy. We will try to avoid any new problems such as bleeding. We will encourage ambulation. We will check his D-dimer. If it is significantly elevated we will start anticoagulation. CODE STATUS. He wants to be full code. The plan of care was discussed with the patient. He verbalized understanding and agreement. Attestations Medical Necessity Statement*: Based on my assessment of his current condition and the problem list he will require more than 2 midnights in the hospital. Coding Level of Care Code Acute Principal Hardware Architect for Devante Mcclelland
[2020-07-11] MEDS: sodium chloride 0.9% 1,000 ML 75 ML IV (17:20)
--- NOTE | 2020-07-11 18:07 | PC.NURSE ---
Patient blood glucose is 118, nurse is aware
--- NOTE | 2020-07-11 18:18 | ECG_ITS ---
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 Measurements Intervals [place] Rate: 96 P: 51 [place]: 194 QRS: 27 QRSD: 77 T: 79 QT: 323 QTc: 410 Interpretive Statements SINUS RHYTHM NONSPECIFIC T-WAVE ABNORMALITY Compared to ECG 07/11/2020 14:40:42 T-wave abnormality now present Sinus tachycardia no longer present Electronically Signed On 07-11-2020 18:59:07 CORRECTIONS UNIT SUPERVISOR by Ochoa Bernal M.D. [email or web address] [email or web address] medical [email or web address]/[id number]
[2020-07-11 18:49] LABS: Troponin 5 6HR 13.27 ng/L (0-15)
[2020-07-11 19:04] LABS: Troponin 5 6HR Delta -3.73 ng/L (0-12)
[2020-07-11] MEDS: tamsulosin 0.4 mg Capsule PO (21:14)
[2020-07-11] MEDS: metoprolol tartrate 50 mg Tablet 100 MG PO (21:14)
--- NOTE | 2020-07-11 21:23 | PC.NURSE ---
Patient blood glucose is 112
[2020-07-11 21:25] LABS: Glucose Point of Care 112 mg/dL (70-110)
[2020-07-11] MEDS: cholecalciferol (vitamin D3) 1,000 unit Tablet 1000 UNIT PO (22:29)
[2020-07-11 23:22] LABS: Procalcitonin 0.09 ng/mL (0-0.5); Vitamin B12 949 pg/mL (232-1245)
--- NOTE | 2020-07-11 23:23 | PC.NURSE ---
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
[2020-07-12 01:25] VITALS: PULSE 76; RESP 18; O2SAT 94
[2020-07-12 04:00] VITALS: BP 129/82; PULSE 76; RESP 18; TEMP 36.8; O2SAT 96
[2020-07-12 05:37] LABS: Basophils # 0.1 10^3/uL (0.0-0.1); Basophils % 1.4 %; Eosinophils # 0.2 10^3/uL (0.0-0.8); Eosinophils % 2.2 %; Hematocrit 37.1 % (42.0-52.0); Hemoglobin 12.1 g/dL (11.7-16.6); Lymphocytes # 1.6 10^3/uL (0.8-4.8); Lymphocytes % 22.3 %; Mean Corpuscular HGB Conc 32.6 g/dL (30.0-36.0); Mean Corpuscular Hemoglobin 29.4 pg (28.0-34.0); Mean Corpuscular Volume 90.3 fL (80-94); Monocytes # 0.8 10^3/uL (0.2-0.9); Neutrophils # 4.52 10^3/uL (1.8-7.7); Neutrophils % 61.6 %; Nucleated Red Blood Cells % 0 %; Platelet Count 301 10^3/cmm (130-400); Red Blood Count 4.11 10^6/uL (4.1-5.3); Red Cell Distribution Width 12.5 % (12.1-15.1); White Blood Count 7.3 10^3/uL (4.0-10.0)
[2020-07-12 05:52] LABS: D Dimer 1.97 ug/mIFEU (0-0.59)
[2020-07-12] MEDS: sodium chloride 0.9% 1,000 ML 75 ML IV (05:56)
--- NOTE | 2020-07-12 06:12 | NUR.SHIFT ---
Patient mainly slept through the night. Patient stated that he felt better now than he did when he first arrived.
[2020-07-12 06:16] LABS: SARS Covid-2 Antigen Negative (Negative)
[2020-07-12 06:27] LABS: Alanine Aminotransferase 12 U/L (0-41); Albumin Level 3.3 g/dL (3.5-5.2); Alkaline Phosphatase 85 IU/L (40-130); Anion Gap 16.7 (5-19); Aspartate Amino Transferase 12 U/L (0-40); Blood Urea Nitrogen 27 mg/dL (8-23); C Reactive Protein 16.1 mg/L (0.0-4.9); Calcium 9.2 mg/dL (8.5-10.5); Carbon Dioxide 22 mmol/L (22-29); Chloride 103 mmol/L (98-107); Glucose 184 mg/dL (65-115); Magnesium 1.1 mg/dL (1.7-2.3); Osmolality Calculated 294 mOsm/kg (285-295); Potassium 4.7 mmol/L (3.5-5.1); Sodium 137 mmol/L (136-145); Thyroid Stimulating Hormone 3.29 uIU/mL (0.27-4.20); Total Bilirubin 0.5 mg/dL (0.15-1.2); Total Protein 6.3 g/dL (6.6-8.7)
[2020-07-12 06:44] LABS: Glucose Point of Care 204 mg/dL (70-110)
[2020-07-12 07:29] VITALS: BP 136/81; PULSE 70; RESP 18; TEMP 36.5; O2SAT 92
[2020-07-12] MEDS: pantoprazole DR 40 mg Tablet PO (09:18)
[2020-07-12] MEDS: metoprolol tartrate 50 mg Tablet 100 MG PO (09:18)
[2020-07-12] MEDS: aspirin 325 mg Tablet PO (09:19)
[2020-07-12] MEDS: clopidogrel 75 mg Tablet PO (09:19)
[2020-07-12] MEDS: levothyroxine 88 mcg Tablet PO (09:19)
[2020-07-12] MEDS: magnesium sulfate premix 2 GM/50 ML PIGGYBACK IV (09:19)
[2020-07-12] MEDS: atorvastatin 40 mg Tablet PO (09:19)
[2020-07-12] MEDS: cholecalciferol (vitamin D3) 1,000 unit Tablet 1000 UNIT PO (09:19)
--- NOTE | 2020-07-12 09:32 | PC.OT ---
OT NOTE: OT EVALUATION ORDERS RECEIVED. SCREEN COMPLETED. PATIENT DEMONSTRATES NO DEFICITS IN ADL/MRADL, UE ROM OR MX STRENGTH. NO FURTHER SKILLED OT REQUIRED.
--- NOTE | 2020-07-12 10:00 | PC.CHAP ---
Pastoral Care Encounter/Spiritual Assessment Type of Contact [] Declined electric arc furnace operator visit [] Patient/Family/Request visit [] Outpatient visit [] Follow-up visit [] Physician referral [] Code/Alert [x] Routine visit [] Staff referral [] Actively dying [] Patient sleeping [] Family support [] [] Out of room [] Palliative care [] [x] Receiving care in room [] Pre-surgical visit [] Trauma [] Long length of stay [] ICU visit [] Other: Relational/Emotional Strength [x] Patient feels connected with others/family/visitors/staff [] Distress [] Loneliness/isolation [] Abandonment Spirituality of Patient [x] Person of Jaclyn [] Attends Cheondoism of their Jaclyn [x] Believes in Prayer [] Reads Bible or Confucianist materials [] There are Spiritual issues to be addressed Lead Network Architect Interventions [x] Prayer [x] Active listening [x] Non-anxious presence [x] Spiritual/emotional support [] Crisis/trauma care [x] Spiritual counseling [] Bereavement support [] Provided bereavement packet [] Provided Bible/devotional materials [] Provided toy/stuffed animal, coloring book to patient or family member [] Provided Communion [] Anointing/[place] [] Salvation [x] Completed spiritual assessment [] Other: Impact on Illness or Injury [] Angry [] Fearful [] Anxious [] Often cries [] Exhaustion [] Unable to work [] Unable to attend congregation [] Unable to walk/stand [] Unable to read [] Unable to drive [] Unable to eat/drink [] Unable to sleep [] Unable to be with family [] Patient intubated [] Other: Summary Had tests and doctor says he can go home, will need recovery time has a good attitude Time spent with patient 10 mins
[2020-07-12 11:05] VITALS: BP 127/84; PULSE 64; RESP 17; TEMP 36.4; O2SAT 93
--- NOTE | 2020-07-12 11:13 | PM.DCS ---
Discharge Providers Date of Admission: 07/11/20 15:04 Date of Discharge: July 12, 2020 Attending Provider at Admission: Hakeem Duran Attending Provider at Discharge: Hakeem Duran Primary Care Provider: DARELL Luke Reason for Visit Reason for Visit: WEAKNESS Hospital Course Hospital Course Please see patient's H&P for more details Discharge diagnoses and problem list: 75-year-old male with past medical history of hypertension, diabetes, chronic kidney disease, GERD, BPH, hypothyroidism, recent COVID-19 infection treated in outpatient settings who is presenting with complaints of generalized weakness. Chest x-ray shows some worsening bilateral infiltrates. However he denies any respiratory complaints or symptoms. Afebrile. Calcitonin was within normal range. I doubt sepsis or pneumonia. His leukocytosis has resolved. No temperature elevation. No respiratory symptoms. Most likely his generalized weakness was related to dehydration and recent viral syndrome secondary to COVID-19 infection. His symptoms improved significantly with IV fluids. His blood pressure medications are slightly adjusted. We are holding hydrochlorothiazide and lisinopril. He will follow-up with his primary care physician and discuss resuming these medications if appropriate. His TSH and B12 level were normal as well. He is instructed to come back to emergency room if he develops any new or similar symptoms. He verbalized understanding and agreement. History of diabetes. He will continue his home medications. The patient denies heart disease but he is on dual antiplatelet therapy. Possible coronary artery disease. He denies any chest pain or shortness of breath. No diaphoresis. Doubt acute coronary syndrome. We will continue his aspirin and Plavix, and beta-yang. History of GERD. We will continue his home medication. Physical Exam Narrative: EXAM NARRATIVE: The patient is awake alert and oriented. In no acute distress. Mood and affect are appropriate. Responses are adequate. Skin is warm and dry. Dry mucous membranes Eyes PERRLA, extraocular muscles are intact Normal speech Cranial nerves II through XII are grossly intact No focal weakness or sensory loss Lungs are clear. No respiratory distress Heart S1, S2, regular tachycardia Neck is supple. No JVD Extremities. No edema cyanosis or calf tenderness bilaterally Discharge Data Data Completed and Pending: Completed Studies During Hospitalization Category Date Time Status XR chest 1V jose ble [id number] Urgent Exams 07/11/20 12:16 Completed Labs from last 24 hours 01/07/12/20 07/12/20 06:26 05:00 05:00 WBC RBC Hgb Hct MCV MCH MCHC RDW Plt Count MPV Neut % (Auto) Lymph % (Auto) [place] % (Auto) Eos % (Auto) Baso % (Auto) Neut # (Auto) Lymph # (Auto) [place] # (Auto) Eos # (Auto) Baso # (Auto) Nucleated RBC % (a uto) Nucleated RBCs # D-Dimer 1.97 H Sodium 137 Potassium 4.7 Chloride 103 Carbon Dioxide 22 Anion Gap 16.7 BUN 27 H Creatinine 1.5 H GFR Calculation Not Reportable Glucose 184 H POC Glucose 204 H Calculated Osmolal ity 294 Lactic Acid Lactic Acid (Sepsi s) Calcium 9.2 Magnesium 1.1 L Total Bilirubin 0.5 AST 12 ALT 12 Alkaline Phosphata se 85 Troponin T Baselin e Troponin T [address] [place] Delta Troponin T Troponin T Hi Sens 6Hr Troponin T Hi Sens 6Hr Delta C-Reactive Protein 16.1 H NT-Pro-B Natriuret Pep Total Protein 6.3 L Albumin 3.3 L Globulin 3.0 Vitamin B12 Procalcitonin TSH 3.29 SARS-CoV-2 Ag (Rap id) 07/12/20 07/12/20 07/11/20 05:00 00:30 21:21 WBC 7.3 RBC 4.11 Hgb 12.1 Hct 37.1 L MCV 90.3 MCH 29.4 MCHC 32.6 RDW 12.5 Plt Count 301 MPV 11.0 H Neut % (Auto) 61.6 Lymph % (Auto) 22.3 [place] % (Auto) 11.0 Eos % (Auto) 2.2 Baso % (Auto) 1.4 Neut # (Auto) 4.52 Lymph # (Auto) 1.6 [place] # (Auto) 0.8 Eos # (Auto) 0.2 Baso # (Auto) 0.1 Nucleated RBC % (a uto) 0 Nucleated RBCs # 0.0 D-Dimer Sodium Potassium Chloride Carbon Dioxide Anion Gap BUN Creatinine GFR Calculation Glucose POC Glucose 112 H Calculated Osmolal ity Lactic Acid Lactic Acid (Sepsi s) Calcium Magnesium Total Bilirubin AST ALT Alkaline Phosphata se Troponin T Baselin e Troponin T [address] [place] Troponin T Troponin T Hi Sens 6Hr Troponin T Hi Sens 6Hr Delta C-Reactive Protein NT-Pro-B Natriuret Pep Total Protein Albumin Globulin Vitamin B12 Procalcitonin TSH SARS-CoV-2 Ag (Rap id) Negative 07/11/20 07/11/20 07/11/20 18:20 15:00 15:00 WBC RBC Hgb Hct MCV MCH MCHC RDW Plt Count MPV Neut % (Auto) Lymph % (Auto) [place] % (Auto) Eos % (Auto) Baso % (Auto) Neut # (Auto) Lymph # (Auto) [place] # (Auto) Eos # (Auto) Baso # (Auto) Nucleated RBC % (a uto) Nucleated RBCs # D-Dimer Sodium Potassium Chloride Carbon Dioxide Anion Gap BUN Creatinine GFR Calculation Glucose POC Glucose Calculated Osmolal ity Lactic Acid Lactic Acid (Sepsi s) 3.0 H Calcium Magnesium Total Bilirubin AST ALT Alkaline Phosphata se Troponin T Baselin e Troponin T [address] [place] 13.54 Delta Troponin T -3.46 L Troponin T Hi Sens 6Hr 13.27 Troponin T Hi Sens 6Hr Delta -3.73 L C-Reactive Protein NT-Pro-B Natriuret Pep Total Protein Albumin Globulin Vitamin B12 Procalcitonin TSH SARS-CoV-2 Ag (Rap id) 07/11/20 07/11/20 07/11/20 12:30 12:30 12:30 WBC RBC Hgb Hct MCV MCH MCHC RDW Plt Count MPV Neut % (Auto) Lymph % (Auto) [place] % (Auto) Eos % (Auto) Baso % (Auto) Neut # (Auto) Lymph # (Auto) [place] # (Auto) Eos # (Auto) Baso # (Auto) Nucleated RBC % (a uto) Nucleated RBCs # D-Dimer Sodium Potassium Chloride Carbon Dioxide Anion Gap BUN Creatinine GFR Calculation Glucose POC Glucose Calculated Osmolal ity Lactic Acid 2.7 H Lactic Acid (Sepsi s) Calcium Magnesium Total Bilirubin AST ALT Alkaline Phosphata se Troponin T Baselin e 17 H Troponin T [address] [place] Troponin T Troponin T Hi Sens 6Hr Troponin T Hi Sens 6Hr Delta C-Reactive Protein NT-Pro-B Natriuret Pep Total Protein Albumin Globulin Vitamin B12 949 Procalcitonin 0.09 TSH SARS-CoV-2 Ag (Rap id) 07/11/20 07/11/20 12:30 12:30 WBC 11.5 H RBC 4.92 Hgb 14.3 Hct 43.3 MCV 88.0 MCH 29.1 MCHC 33.0 RDW 12.5 Plt Count 428 H MPV 10.9 H Neut % (Auto) 69.1 Lymph % (Auto) 17.1 [place] % (Auto) 9.9 Eos % (Auto) 1.4 Baso % (Auto) 1.1 Neut # (Auto) 7.93 H Lymph # (Auto) 2.0 [place] # (Auto) 1.1 H Eos # (Auto) 0.2 Baso # (Auto) 0.1 Nucleated RBC % (a uto) 0 Nucleated RBCs # 0.0 D-Dimer Sodium 133 L Potassium 4.6 Chloride 96 L Carbon Dioxide 22 Anion Gap 19.6 H BUN 32 H Creatinine 1.8 H GFR Calculation Not Reportable Glucose 188 H POC Glucose Calculated Osmolal ity 288 Lactic Acid Lactic Acid (Sepsi s) Calcium 10.1 Magnesium Total Bilirubin 0.7 AST 16 ALT 16 Alkaline Phosphata se 110 Troponin T Baselin e Troponin T [address] [place] Troponin T Troponin T Hi Sens 6Hr Troponin T Hi Sens 6Hr Delta C-Reactive Protein NT-Pro-B Natriuret Pep 146 H Total Protein 7.0 Albumin 4.1 Globulin 2.9 Vitamin B12 Procalcitonin TSH SARS-CoV-2 Ag (Rap id) Vitals: Last Vital Signs Temp 97.5 F L 07/12/20 11:05 Pulse 64 07/12/20 11:05 Resp 17 07/12/20 11:05 BP 127/84 07/12/20 11:05 Pulse Ox 93 07/12/20 11:05 Discharge Plan Discharge Patient Disposition: Home Condition: Stable Prescriptions: Continued atorvastatin 40 mg tablet 40 mg PO DAILY@0900 RF: 0 Plavix 75 mg tablet 75 mg PO DAILY@0900 RF: 0 aspirin 325 mg Tablet 325 mg PO DAILY@0900 RF: 0 metoprolol tartrate 100 mg Tablet 100 mg PO BID@0900,2099 RF: 0 allopurinol 100 mg Tablet 100 mg PO DAILY@0900 RF: 0 levothyroxine 88 mcg Tablet 88 mcg PO DAILY@0900 RF: 0 tamsulosin 0.4 mg Capsule 0.4 mg PO DAILY@2100 RF: 0 metformin 1,000 mg Tablet 1,000 mg PO BID@0900,2099 RF: 0 omeprazole 20 mg Capsule,Delayed Release(Dr/Ec) 20 mg PO DAILY@0900 RF: 0 cholecalciferol (vitamin D3) [Vitamin D3] 25 mcg (1,000 unit) Capsule 1,000 unit PO BID@899,2099 RF: 0 Vitamin B-12 1 tab PO BID@899,2099 RF: 0 albuterol sulfate 90 mcg/actuation HFA aerosol inhaler 2 inh inhalation Q6H PRN (Reason: shortness of breath or wheezing) Qty: 1 RF: 0 Held lisinopril 10 mg Tablet 10 mg PO BID@899,2099 RF: 0 Hold Instructions: Resume on 07/19/20. Please speak with your primary care physician before resuming this medication. hydrochlorothiazide 25 mg Tablet 25 mg PO DAILY@0900 RF: 0 Hold Instructions: Resume on 07/26/20. Please speak with your primary care physician before resuming this medication. Discontinued meloxicam See Rx Instructions .ROUTE .COMPLEX RF: 0 Discharge Orders: Discharge Order (Routine); Ordered 07/12/20 Ordered By: Hakeem Duran Referrals: Mini Vasquez FNP [Primary Care Provider] - 4-7 days Discharge Diet: Usual diet Discharge Activity: Increase activity as tolerated Patient Instructions: Viral Pneumonia (DC), Sepsis (DC) Activity Restrictions/Additional Instructions: Please come back to emergency room if develop any new or worsening generalized weakness, dizziness or lightheadedness, nausea or vomiting, diarrhea, fever or chills, chest pain, shortness of breath, cough, palpitations, or any other new complaints. Discharge Attestations Time Spent in Discharge Care*: less than 30 min Quality Metrics Clinical Quality Measures During this hospital stay, did patient experience: None Coding Level of Care Code Acute Outcomes Analyst for Devante Mcclelland
[2020-07-12 12:06] LABS: Glucose Point of Care 192 mg/dL (70-110)
[2020-07-12 13:11] VITALS: BP 127/84; PULSE 64; RESP 17; TEMP 36.4; O2SAT 93
== END 2020-07-12 13:13 | disposition home or self-care (01) | DRG 641 ==
LOC: ER 12:34 → MEDSURG 18:33
PROVIDERS: Internal Medicine; Admitting Provider Internal Medicine; Emergency Provider Family Medicine; PCP Nurse Practitioner; Visit Provider Internal Medicine
DX: E86.0 Dehydration (principal); B94.8 Sequelae of other specified infectious and parasitic diseases; E11.22 Type 2 diabetes mellitus with diabetic chronic kidney disease; I12.9 Hypertensive chronic kidney disease with stage 1 through stage 4 chronic kidney disease, or unspecified chronic kidney disease; N18.9 Chronic kidney disease, unspecified; E78.5 Hyperlipidemia, unspecified; M10.9 Gout, unspecified; N40.0 Benign prostatic hyperplasia without lower urinary tract symptoms; K21.9 Gastro-esophageal reflux disease without esophagitis; I25.10 Atherosclerotic heart disease of native coronary artery without angina pectoris; Z79.02 Long term (current) use of antithrombotics/antiplatelets; Z79.84 Long term (current) use of oral hypoglycemic drugs; Z79.51 Long term (current) use of inhaled steroids
CPT/HCPCS: 12345; 36415; 36416; 71045; 80053; 82607; 82962; 83605; 83735; 83880; 84145; 84443; 84484; 85025; 85378; 86140; 87426; 93005; 96372; 97161; 99283; J1815; J1956; J3475; J7030